=== PATIENT | male | born 1960 | race Caucasian/White ===

== ENCOUNTER 2017-08-26 18:31 | Emergency (ER) | END 2017-08-27 00:28 | disposition home or self-care (01) ==

== ENCOUNTER 2017-10-19 09:05 | Emergency (ER) | END 2017-10-19 10:30 | disposition home or self-care (01) ==

== ENCOUNTER 2018-10-02 18:17 | Emergency (ER) | payer OTHER ==
[~2018-10-02] VITALS: Wt 62.8 kg
[~2018-10-02 18:17] MED LIST: ACET500C5 PO; ALBU8.5H8 INH; AMOX1TAB67 PO; AZIT250T PO; CETI10CA PO; FAMO20TA; FENO48TA4 PO; FENO67CA PO; FLUT9.9S NASAL; GABA300C16 PO; GLIM4TAB55; GUAI-112 PO; GUAI473L22 PO; IBUP-1561 PO; METF100010 PO; METF500T3; NPH SQ; NPH,100V SQ; PARO-37; SS SC; [UNRECOGNIZED DRUG - CODE] MC
[2018-10-02] MEDS ORDERED: SOD CHLORIDE 0.9% 630 ML IV ONE (19:00)
[2018-10-02] MEDS ORDERED: BENA20TA4 PO ×2 (19:23→20:39)
[2018-10-02] MEDS ORDERED: SOD CHLORIDE 0.9% 1,000 ML IV STA (19:26)
[2018-10-02] MEDS ORDERED: INSULIN LISPRO 100 UNIT/ML VIAL SC ONE (19:30)
[2018-10-02] MEDS ORDERED: INSU100V3 IJ ×2 (19:35→20:39)
[2018-10-02] MEDS ORDERED: MTF1000T PO (20:39)
[2018-10-02] MEDS ORDERED: FENO48TA4 PO (20:39)
[2018-10-02] MEDS ORDERED: FAMO-96 PO (20:39)
--- NOTE | 2018-10-02 20:45 | ERD ---
ER Documentation Chief Complaint Chief Complaint DM PT HAS NOT TAKEN MEDICATIONS 3MONTHS, LOSS 10LBS LAST 3MONTHS HPI During the patient's encounter translation services were utilized Language: Georgian Source: In person 58-year-old gentleman who presents for refill of his medications. He has been out of his medications for at least 3 months. The patient notes polyuria polydipsia polyphagia. He also notes weight loss of 10 pounds over the last 3 months unintentional. He denies any fevers chills chest pain or shortness of br eath. Otherwise he feels that his baseline. The patient's glucose is noted to be critical high. ROS All systems reviewed and are negative except as per history of present illness. Medications Home Meds Active Scripts Metformin* (Glucophage*) 1,000 Mg Tablet, 1000 MG PO BID for 30 Days, TAB Prov:EUNICE SORENSEN MD 10/02/18 Famotidine* (Pepcid*) 20 Mg Tablet, 20 MG PO BID for 30 Days, TAB Prov:EUNICE SORENSEN MD 10/02/18 Benazepril Hcl* (Benazepril Hcl*) 20 Mg Tablet, 20 MG PO DAILY, #30 TAB Prov:EUNICE SORENSEN MD 10/02/18 Fenofibrate Nanocrystallized* (Fenofibrate*) 48 Mg Tablet, 67 MG PO DAILY for 30 Days, TAB Prov:EUNICE SORENSEN MD 10/02/18 Insulin Regular, Human (Humulin R) 100 Unit/1 Ml Vial, 20 UNIT IJ TIDM A for 30 Days, VIAL Prov:EUNICE SORENSEN MD 10/02/18 Discontinued Reported Medications Insulin Regular, Human (Humulin R) 100 Unit/1 Ml Vial, 20 UNIT IJ AC A, VIAL 10/02/18 Benazepril Hcl* (Benazepril Hcl*) 20 Mg Tablet, 20 MG PO DAILY, #30 TAB 10/02/18 Insulin Human Nph (Novolin-N) 100 Units/Ml Susp, 0 SQ BID 10/19/17 Fenofibrate Nanocrystallized* (Fenofibrate*) 48 Mg Tablet, 67 MG PO DAILY, TAB 10/19/17 Gabapentin* (Gabapentin*) 300 Mg Capsule, 300 MG PO PC DINNER, #60 CAP 10/19/17 Metformin Hcl* (Metformin Hcl*) 1,000 Mg Tablet, 1000 MG PO BID, #30 TAB 10/19/17 Famotidine (Heartburn Relief) 20 Mg Tablet 11/17/10 Metformin* (Glucophage* XR) 500 Mg Tab.sr.24h 11/17/10 Paroxetine Hcl* (Paroxetine*) 20 Mg Tablet 11/17/10 Glimepiride* (Amaryl*) 4 Mg Tablet 11/17/10 Discontinued Scripts Syringe & Needle,Insulin,1 Ml (EASY-TOUCH INSULIN SYRINGE) 1 Each Disp.syrin, 1 EACH MC, #60 Prov:FELICITA DICKEY-C 10/19/17 Gabapentin* (Gabapentin*) 300 Mg Capsule, 300 MG PO QHS, #60 CAP Prov:FELICITA DICKEY-C 10/19/17 Fenofibrate, Micronized (Fenofibrate) 67 Mg Capsule, 67 MG PO DAILY, #30 CAP Prov:FELICITA DICKEY-C 10/19/17 Insulin Human Regular (Novolin-R U-100) 100 Unit/Ml Soln, 20 UNITS SC AC MEALS, #30 EA Prov:FELICITA DICKEY-C 10/19/17 Insulin NPH Human Isophane (Humulin N) 100 Unit/1 Ml Vial, 20 UNIT SQ BID WITH MEALS, #1 VIAL Prov:NIKKO CARRERO NP 08/27/17 Acetaminophen* (Tylophen*) 500 Mg Capsule, 1 CAP PO Q6H PRN for PAIN AND OR ELEVATED TEMP, #20 CAP Prov:NIKKO CARRERO NP 08/27/17 Ibuprofen* (Motrin*) 400 Mg Tab, 400 MG PO Q6H PRN for PAIN AND OR ELEVATED TEMP, #30 TAB Prov:NIKKO CARRERO NP 08/27/17 Azithromycin* (Zithromax*) 250 Mg Tablet, 250 MG PO .MAJO DIRECTED, #6 TAB TAKE 500 MG (2 TABS) THE FIRST DAY THEN 250 MG (1 TAB) DAYS 2-5 Prov:NIKKO CARRERO NP 08/27/17 Cetirizine Hcl* (Zyrtec*) 10 Mg Capsule, 10 MG PO DAILY, #30 TAB.CHEW Prov:NIKKO CARRERO NP 08/27/17 Guaifenesin-Codeine Phosphate* (Guaifenesin* AC Cough Syrup) 473 Ml Liquid, 5 ML PO Q4H PRN for COUGH, #60 ML Prov:NIKKO CARRERO NP 08/27/17 Albuterol Sulfate* (Proair HFA*) 8.5 Gm Hfa.aer.ad, 2 PUFF INH Q4H PRN for WHEEZING AND SOB, #1 INHALER Prov:NIKKO CARRERO NP 08/27/17 Fluticasone Propionate (Flonase Allergy Relief) 9.9 Ml [place].susp, 1 SPRAY NASAL BID, #1 BOTTLE TO EACH NOSTRIL Prov:FELICITA DICKEY PA-C 08/28/15 Guaifenesin-Pseudoephedrine Hcl* (Mucinex* D ER) 600-60 Mg Tab.sr.12h, 1 TAB PO BID for 10 Days, TAB Prov:FELICITA DICKEY PA-C 08/28/15 Amoxicillin-Clavulanate K* (Augmentin*) 500 Mg Tab, 500 MG PO BID for 10 Days, TAB Prov:FELICITA DICKEY PA-C 08/28/15 Allergies Allergies: Coded Allergies: No Known Allergy (Verified , 10/02/18) PMhx/Soc History of Surgery: No Anesthesia Reaction: No Hx Neurological Disorder: No Hx Respiratory Disorders: No Hx Cardiac Disorders: No Hx Psychiatric Problems: No Hx Miscellaneous Medical Probl: Yes (DMII) Hx Alcohol Use: No Hx Substance Use: No Hx Tobacco Use: No Smoking Status: Never smoker FmHx Family History: diabetes Physical Exam Vitals Vital Signs Date Temp Pulse Resp B/P (MAP) Pulse Ox O2 O2 Flow FiO2 Time Delivery Rate 10/02/18 97.1 81 20 135/81 100 Room Air 18:46 (99) 10/02/18 97.1 82 20 131/71 100 18:20 (91) Physical Exam General: Well developed, well nourished, no acute distress Head: Normocephalic, atraumatic. Eyes: Pupils equally reactive, EOM intact ENT: Dry mucous membranes Neck: Supple, no lymphadenopathy Respiratory: Lungs clear bilaterally, no distress Cardiovascular: RRR, no murmurs, rubs, or gallops Abdominal: Soft, non-tender, non-distended, no peritoneal signs : Deferred MSK: No edema, no unilateral swelling, 5/5 strength Neurologic: Alert and oriented, moving all extremities, normal speech, no focal weakness, no cerebellar signs Skin: No rash Psych: Normal mood Result Diagram: 10/02/18 1845 10/02/18 1845 Results 24 hrs Laboratory Tests Test 10/02/18 18:32 10/02/18 18:35 10/02/18 18:45 10/02/18 20:36 Bedside Glucose > 595 mg/dL 421 mg/dL Blood Gas Blood venous Specimen Source Arterial Blood 10/02/2018 7:00:00 Date Drawn PM Arterial Blood VENOUS LINE Gas Puncture Site Bry Test N/A Venous Blood pH 7.332 Venous Blood pCO2 44.4 mmHG (Temp Corrected) Venous Blood pO2 46.0 mmHG (Temp Corrected) Venous Blood HCO3 23.0 mmol/L Venous Blood 80.5 mmHG Oxygen Saturation Venous Blood Base -2.9 mmol/L Excess Venous Blood 12.2 g/dl Total Hemoglobin Venous Blood 80.0 % Oxyhemoglobin Venous Blood 0.3 % Methemoglobin Carboxyhemoglobin 0.3 % Blood Gas 37.0 C Temperature Blood Gas ROOM AIR Modality FiO2 21.0 % Blood Gas MR Notified Whom Blood Gas 10/02/2018 7:09:14 Notified Time PM White Blood Count 5.3 10^3/ul Red Blood Count 4.19 10^6/ul Hemoglobin 13.0 g/dl Hematocrit 36.6 % Mean Corpuscular 87.4 fl Volume Mean Corpuscular 31.0 pg Hemoglobin Mean Corpuscular 35.5 g/dl Hemoglobin Concen t Red Cell 12.0 % Distribution Width Platelet Count 226 10^3/UL Mean Platelet 9.4 fl Volume Immature 0.200 % Granulocytes % Neutrophils % 66.0 % Lymphocytes % 27.5 % Monocytes % 5.1 % Eosinophils % 0.8 % Basophils % 0.4 % Nucleated Red 0.0 /100WBC Blood Cells % Immature 0.010 10^3/ul Granulocytes # Neutrophils # 3.5 10^3/ul Lymphocytes # 1.5 10^3/ul Monocytes # 0.3 10^3/ul Eosinophils # 0.0 10^3/ul Basophils # 0.0 10^3/ul Nucleated Red 0.0 10^3/ul Blood Cells # Urine Color COLORLESS Urine Clarity CLEAR Urine pH 6.0 Urine Specific 1.017 [place] Urine Ketones NEGATIVE mg/dL Urine Nitrite NEGATIVE mg/dL Urine Bilirubin NEGATIVE mg/dL Urine NEGATIVE mg/dL Urobilinogen Urine Leukocyte NEGATIVE Sarai/ul Esterase Urine Hemoglobin NEGATIVE mg/dL Urine Glucose 3+ mg/dL Urine Total NEGATIVE mg/dl Protein Sodium Level 131 mmol/L Potassium Level 4.4 mmol/L Chloride Level 95 mmol/L Carbon Dioxide 27 mmol/L Level Anion Gap 9 Blood Urea 9 mg/dl Nitrogen Creatinine 0.84 mg/dl Est Glomerular > 60 mL/min Filtrat Rate mL/min Glucose Level 624 mg/dl Calcium Level 8.7 mg/dl Phosphorus Level 4.3 mg/dl Magnesium Level 2.0 mg/dl Troponin I < 0.012 ng/ml Current Medications Medications Dose Sig/Clotilde Start Time Status Last (Trade) Ordered Route PRN Stop Time Admin Dose Reason Admin Sodium 630 ml @ ONCE ONCE 10/02/18 DC 10/02/18 Chloride 630 mls/hr IV 19:00 10/02/18 18:51 19:59 Insulin 10 unit ONCE ONCE 10/02/18 DC 10/02/18 Human SC 19:30 10/02/18 19:50 Lispro 19:34 (Humalog) Sodium 1,000 ml @ Q1H STAT 10/02/18 DC 10/02/18 Chloride 1,000 mls/hr IV 19:26 10/02/18 19:44 20:25 Procedures/MDM EKG, MONITORS, & DIAGNOSTIC IMAGING: EKG: I reviewed and interpreted a 12-lead EKG. Rhythm: Normal sinus rhythm ST Changes: No contiguous ST segment elevations T waves: No contiguous T wave inversions Impression: [No evidence of acute cardiac ischemia] Chest x-ray: No acute process LAB INTERPRETATION: * No evidence of infectious process * PH is normal. Chemistry shows slight hyponatremia but likely secondary to hyperglycemia. No evidence of anion gap acidosis, bicarb is 27. Normal creatinine function, negative troponin * Urine is without ketones MEDICAL DECISION MAKING: Patient presents with hyperglycemia secondary to medication noncompliance. The patient needs to be screened for diabetic ketoacidosis though clinically he is well-appearing ER COURSE: * Laboratory testing and diagnostic imaging show hyperglycemia without evidence of diabetic ketoacidosis. No evidence of endorgan dysfunction. * The patient was given IV fluids, subcutaneous Humalog. After period of time the patient's blood glucose is trending down into the 400 range. The patient does not meet diagnostic criteria for diabetic ketoacidosis and does not warrant hospitalization, insulin drip for further treatment. * endoscopy technician was able to receive the patient's most recent medications. The patient does not know the names or dosing of his medications. * The patient was strongly advised of compliance of his medications a primary care follow-up CONSULTATION: [None] DISPOSITION PLAN: The patient does not have an identifiable emergent medical condition that katrina ants inpatient hospitalization at this time. The patient is deemed safe for discharge with outpatient follow-up. We discussed follow up with the patient's primary care doctor within 24 to 48 hours as needed. We also discussed return to the emergency room for worsening symptoms or worsening condition. Outpatient referral: [None required] Discharge Medications: Humulin R 20 units 3 times daily with meals Fenofibrate 67 mg daily Benazepril 20 mg daily Famotidine 20 mg twice daily Metformin 1000 mg twice daily albumin Departure Diagnosis: Primary Impression: Hyperglycemia Additional Impression: Encounter for medication refill Condition: Stable Patient Instructions: Hyperglycemia (High Blood Sugar) Referrals: [facility] ted se christopher hecho un examen mdico de control que le indica que no est en madina condicin que requiera tratamiento urgente en el Departamento de Emergencia. Un estudio ms profundo y el tratamiento de lawrence condicin pueden esperar sin ningn riesgo hasta que usted sea atendida/o en el consultorio de lawrence mdico o madina clnica. Es responsabilidad suya arreglar madina samson para el seguimiento del ebryl. MANEJO DE CONDICIONES NO URGENTES EN EL FUTURO 1) Si usted tiene un mdico de atencin primaria: Usted debera llamar a lawrence mdico de atencin primaria antes de venir al departamento de emergencia. Despus de las horas de consultorio, lawrence doctor o lawrence asociado/a est disponible por telfono. El mdico o enfermero de christiane en el servicio telefnico puede asesorarle por chey medio para atender el problema, o beryl contrario se puede programar madina samson. 2) Si usted no tiene un mdico de atencin primaria: Llame al mdico o clnica de referencia que aparece abajo rad las horas de consultorio para hacer madina samson para que le vean. CLINICAS: [facility] [phone] [address] [facility] [phone] [facility] [phone] [address] [facility]. [place] [id number] [phone] [facility]. [place] [id number] [phone] [facility] [phone] [address] [facility]. [facility] () Usted se christopher hecho un examen mdico de control que le indica que no est en madina condicin que requiera tratamiento urgente en el Departamento de Emergencia. Un estudio ms profundo y el tratamiento de lawrence condicin pueden esperar sin ningn riesgo hasta que usted sea atendida/o en el consultorio de lawrence mdico o madina clnica. Es responsabilidad suya arreglar madina samson para el seguimiento del beryl. MANEJO DE CONDICIONES NO URGENTES EN EL FUTURO 1) Si usted tiene un mdico de atencin primaria: Usted debera llamar a lawrence mdico de atencin primaria antes de venir al de partamento de emergencia. Despus de las horas de consultorio, lawrence doctor o lawrence asociado/a est disponible por telfono. El mdico o enfermero de christiane en el servicio telefnico puede asesorarle por chey medio para atender el problema, o beryl contrario se puede programar madina samson. 2) Si usted no tiene un mdico de atencin primaria: Llame al mdico o condado institucions de referencia que aparece abajo rad las horas de consultorio para hacer madina samson para que le vean. SI USTED NO PUEDE PAGAR PARA NORRIS UN MEDICO puede ir a: [facility] [address] [place] [address] [facility] [address] [place] [address] [facility] [address] [place] [address] [facility] [address] [place], [place] [id number] Additional Instructions: Llame al doctor nombrado abajo (Referral Sources) MAANA y cathy madina SAMSON PARA DENTRO DE MADINA SEMANA. Dgale a la secretaria que nosotros le instruimos hacer esta samson.Avise o llame si lawrence condicin se empeora antes de la samson. EUNICE SORENSEN MD Oct 02, 2018 20:45
[2018-10-02 21:07] VITALS: BP 128/74; PULSE 77; RESP 20
== END 2018-10-02 21:07 | disposition home or self-care (01) ==
LOC: E/R 18:17
DX: E11.65 Type 2 diabetes mellitus with hyperglycemia (principal); Z79.4 Long term (current) use of insulin
CPT/HCPCS: 36415; 71045; 80048; 81003; 82803; 82962; 83735; 84100; 84484; 85025; 93005; 96372; 99285; J1815; J7030

== ENCOUNTER 2019-01-28 02:08 | Inpatient (IN) | payer OTHER ==
[2019-01-28] VITALS (61 sets, daily range): BP systolic 83–133; BP diastolic 54–86; PULSE 89–109; RESP 11–25; Ht 177.8 cm; Wt 72.1 kg
[~2019-01-28] VITALS: Ht 177.8 cm; Wt 72.1 kg
[~2019-01-28 02:08] MED LIST changes: -ACET500C5 PO; -ALBU8.5H8 INH; -AMOX1TAB67 PO; -AZIT250T PO; +BENA20TA4 PO; -CETI10CA PO; +FAMO-96 PO; -FAMO20TA; -FENO67CA PO; -FLUT9.9S NASAL; -GABA300C16 PO; -GLIM4TAB55; -GUAI-112 PO; -GUAI473L22 PO; -IBUP-1561 PO; +INSU100V3 IJ; -METF100010 PO; -METF500T3; +MTF1000T PO; -NPH SQ; -NPH,100V SQ; -PARO-37; -SS SC; -[UNRECOGNIZED DRUG - CODE] MC
[2019-01-28] MEDS: NITROGLYCERIN 50 MG/D5W (PMX) 250 ML IV SCH ×2 (03:25→07:31)
[2019-01-28] MEDS ORDERED: FENTAnyl 50 MCG/ML VIAL IV ONE (03:30)
[2019-01-28] MEDS ORDERED: HEPARIN 1000 UNITS/ML 10 ML INJ IV ONE (03:30)
[2019-01-28] MEDS ORDERED: ASPIRIN 81 MG TAB PO ONE (03:30)
[2019-01-28] MEDS ORDERED: SOD CHLORIDE 0.9% 1,000 ML IV ONE (03:30)
[2019-01-28] MEDS ORDERED: HEPARIN 1000 UNITS/ML 10 ML INJ ONE (03:50)
[2019-01-28] MEDS ORDERED: LIDOCAINE 1% (MDV) 20 ML INJ ONE (03:50)
[2019-01-28] MEDS ORDERED: IODIXANOL LOCM 100 ML BTL ONE (03:50)
[2019-01-28] MEDS ORDERED: MIDAZOLAM 1 MG/ML 2 ML INJ ONE (03:51)
[2019-01-28] MEDS ORDERED: FENTAnyl 50 MCG/ML VIAL ONE (03:51)
[2019-01-28] MEDS ORDERED: NITROGLYCERIN (IC) 100 MCG/ML INJ ONE (03:51)
[2019-01-28] MEDS ORDERED: VERAPAMIL 5 MG INJ ONE (03:51)
[2019-01-28] MEDS ORDERED: BIVALIRUDIN 250MG /NS 50 ML 50 ML IVPB ONE (04:28)
[2019-01-28] MEDS ORDERED: niCARdipine 25 MG INJ ONE (04:42)
[2019-01-28] MEDS ORDERED: TICAGRELOR 90 MG TABLET ONE (05:01)
[2019-01-28] MEDS ORDERED: BIVALIRUDIN 250MG /NS 50 ML 50 ML IVPB SCH (05:06)
[2019-01-28] MEDS ORDERED: SOD CHLORIDE 0.9% 1,000 ML IV SCH (05:06)
[2019-01-28] MEDS ORDERED: EPTIFIBATIDE 100 ML IV SCH (05:06)
--- NOTE | 2019-01-28 05:13 | SIPON ---
Date/Time of Note Date/Time of Note DATE: 01/28/19 TIME: 05:11 Operative Report Preoperative Diagnosis 1.STEMI Postoperative Diagnosis 1.Obstructive cad Operation/Procedure Performed 1.[facility] 2.PTCA/stent x 2 to LAD with JOSÉ MIGUEL Surgeon see signature line outreach assistant 1.Homero Anesthesia: moderate sedation Estimated blood loss: minimal Transfusion Required none Specimen none Grafts/Implants none Complications none TERI MURILLO January 28, 2019 05:12
[2019-01-28] MEDS ORDERED: AL HYDROX/MG HYDROX/SIMETH 30 ML CUP PO PRN (05:30)
[2019-01-28] MEDS ORDERED: ONDANSETRON 4 MG INJ IV PRN (05:30)
[2019-01-28] MEDS ORDERED: OXYCODONE/ACETAMINOPHEN (5/325) TAB PO PRN (05:30)
--- NOTE | 2019-01-28 05:32 | HP ---
Date/Time of Note Date/Time of Note DATE: 01/28/19 TIME: 05:32 Assessment/Plan VTE Prophylaxis SCD applied (from Nsg): Yes Pharmacological prophylaxis: NA/contraindicated Pharm contraindication: low risk/ambulating Lines/Catheters IV Catheter Type (from Nrsg): Saline Lock Assessment/Plan Hospital Course This is a 58-year-old male being admitted to the ICU floor for: #1 acute STEMI: ST elevations in leads V1, V2 and V3. Patient loaded with aspirin and heparin. Code STEMI was called in the emergency department. Dr. Carreno is on his way for emergent PCI in the Vehicle [employer]. We will keep the patient n.p.o. except meds. Likely transfer to ICU after cardiac catheterization. Further medication management will be forthcoming depending on the results of the cardiac cath. Will initiate high-dose statin. Initiation of beta-alex at the discretion of cardiology. #2 diabetes mellitus: We will hold metformin, insulin sliding scale we will check hemoglobin A1c #3 hyperlipidemia: Check lipid panel, will need to initiate high-dose statin #4 hypertension: Continue lisinopril, monitor blood pressures. #5 DVT GI prophylaxis: SCDs, Protonix Further treatment strategy will be implemented as per the clinical course Greater than 30 minutes of critical care time spent on the care management this patient. Result Diagram: 01/28/19 0259 01/28/19 0259 Results 24hrs Laboratory Tests Test 01/28/19 02:59 White Blood Count 9.2 # Red Blood Count 4.48 L Hemoglobin 13.8 L Hematocrit 38.5 L Mean Corpuscular Volume 85.9 Mean Corpuscular Hemoglobin 30.8 Mean Corpuscular Hemoglobin Concent 35.8 Red Cell Distribution Width 12.4 Platelet Count 204 Mean Platelet Volume 8.9 Immature Granulocytes % 0.400 Neutrophils % 69.8 Lymphocytes % 18.9 Monocytes % 10.4 Eosinophils % 0.3 Basophils % 0.2 Nucleated Red Blood Cells % 0.0 Immature Granulocytes # 0.040 H Neutrophils # 6.4 Lymphocytes # 1.7 Monocytes # 1.0 H Eosinophils # 0.0 Basophils # 0.0 Nucleated Red Blood Cells # 0.0 Sodium Level 140 Potassium Level 4.0 Chloride Level 101 Carbon Dioxide Level 30 Anion Gap 9 Blood Urea Nitrogen 12 Creatinine 0.71 Est Glomerular Filtrat Rate mL/min > 60 Glucose Level 268 H Calcium Level 9.0 Troponin I 27.300 *H HPI/ROS Admit Date/Time Admit Date/Time Hx of Present Illness Chief complaint: Chest pain x2 days This is a 58-year-old male with a past medical history of diabetes mellitus, hypertension, hyperlipidemia who presented to the emergency department with chest pain x2 days. Patient reports that his chest pain had been left-sided and radiating to the bilateral shoulders. His pain continued to get worse he came to the emergency department. Patient reports shortness of breath. But denies any nausea vomiting or diarrhea. In the emergency department patient was noted to be in acute distress. EKG did show normal sinus rhythm with ST elevations in leads V1, V2 and V3 worse with reciprocal changes consistent with STEMI. Code STEMI was called. Dr. Carreno has been notified by the emergency department and he is on his way to see the patient. He has received aspirin 325 mg, heparin bolus, in the emergency department. Currently awaiting troponin results. Allergies: NKDA Medications: See RICK POON Const: As per HPI Eyes : No pain discharge or redness or change in visual acuity ENT: No pain, sore throat, congestion, congestion, dysphagia or discharge Respiratory: As per HPI Cardiovascular: As per HPI GI : no change in appetite, abdominal pain, nausea, vomiting, diarrhea, constipation, or change in the color his stool Genitourinary: No dysuria, hematuria, flank pain , discharge or CVA tenderness Musculoskeletal: No joint pain, back pain, neck pain, restricted range of motion in neck or joints Skin: No rash, bruising or hives Neuro: No headache, dizziness, syncope, seizure, focal weakness Endocrine: No polyuria, polydipsia, temperature intolerance Psych: No hallucination, depression, anxiety or suicidal ideation PMH/Family/Social Past Medical History Hypertension, hyperlipidemia, diabetes mellitus Medications Current Medications Nitroglycerin/ Dextrose 250 ml @ 0 mls/hr TITRATE IV Last administered on 01/28/19at 03:25; Admin Dose 1.5 MLS/HR; Start 01/28/19 at 03:30 Aspirin (Halfprin) 81 mg DAILY PO ; Start 01/28/19 at 09:00 Ticagrelor (Brilinta) 90 mg BID PO ; Start 01/28/19 at 09:00 Eptifibatide 100 ml @ 3.936 mls/ hr Q24H IV ; Start 01/28/19 at 05:06; Stop 01/28/19 at 17:05 Bivalirudin 50 ml @ 22.96 mls/ hr Q2H11M IVPB ; Start 01/28/19 at 05:06; Stop 01/28/19 at 07:16 Acetaminophen (Tylenol Tab) 650 mg Q4H PRN PO PAIN; Start 01/28/19 at 05:30 Oxycodone/ Acetaminophen (Percocet (5/ 325)) 2 tab Q4H PRN PO PAIN; Start 01/28/19 at 05:30 Al Hydrox/Mg Hydrox/Simethicone (Mag-Al Plus) 30 ml Q4H PRN PO GASTROINTESTINAL UPSET; Start 01/28/19 at 05:30 Ondansetron HCl (Zofran Inj) 4 mg Q4H PRN IV NAUSEA AND/OR VOMITING; Start 01/28/19 at 05:30 Sodium Chloride 1,000 ml @ 75 mls/hr [id number] IV ; Start 01/28/19 at 05:06; Stop 01/28/19 at 18:25 Coded Allergies: No Known Allergy (Verified , 10/02/18) Past Surgical History Past Surgical Hx: no surgical history Family History Significant Family History: no pertinent family hx Social History History of on and off again heavy alcohol use, last time 3 months ago Alcohol Use: other Smoking Status: Never smoker Exam/Review of Systems Vital Signs Vitals Vital Signs Date Temp Pulse Resp B/P (MAP) Pulse Ox O2 O2 Flow FiO2 Time Delivery Rate 01/28/19 Nasal 2 03:39 Cannula 01/28/19 85 16 110/71 99 03:30 (84) 01/28/19 97.8 02:24 Exam Exam General: Patient is currently lying in bed he appears to be in moderate distress from chest pain HEENT: Atraumatic, normocephalic. The pupils are equal, round and reactive. Extraocular motor are intact Neck: Supple with full range of motion. No rigidity or meningismus Chest: Nontender to palpation Lungs: Clear to auscultation bilaterally no crackles rales or wheezing Heart: Normal S1-S2, Regular rhythm and rate. No overt murmurs appreciated on auscultation Abdomen: Soft , nontender, nondistended , bowel sounds are present. No guarding no rebound tenderness , No masses or organomegaly. No costovertebral temporal angle mass Extremities: Normal to inspection, no edema no cyanosis Neurologic: Normal mental status, speech normal, cranial nerves II through XII are intact, motor and sensory are intact, Additional Comments EKG: Normal sinus rhythm with ST elevations in V1 V2 and V3 concerning for acute STEMI PROCEDURE: XR Chest. CLINICAL INDICATION: Chest pain TECHNIQUE: AP portable chest was obtained COMPARISON: None. FINDINGS: Cardiomediastinal silhouette is normal. Pulmonary vasculature is normal. Lungs and costophrenic angles are clear. Bones soft tissues are unremarkable. IMPRESSION: No evidence of acute cardiopulmonary disease. RPTAT:AAJJ Physician Mercy Date Time Electronically viewed and signed by Physician Mercy on 01/28/2019 06:02 BM/ CC: KAZ BRODY MD [id number] CECILLE RICHARD January 28, 2019 05:32
[2019-01-28] MEDS ORDERED: NITROGLYCERIN (SL) 0.4 MG TAB SL PRN (06:00)
[2019-01-28] MEDS: PANTOPRAZOLE (EC) 40 MG TAB PO SCH (06:00)
[2019-01-28] MEDS ORDERED: ACETAMINOPHEN 650MG/20.3ML CUP PO PRN (06:00)
[2019-01-28] MEDS: morphine 2 MG INJ IV PRN ×5 (06:01→23:39)
[2019-01-28] MEDS ORDERED: ASPIRIN 81 MG TAB ONE (07:00)
[2019-01-28] MEDS ORDERED: HEPARIN 5,000 UNIT/1 ML VIAL ONE (07:00)
[2019-01-28] MEDS ORDERED: NITROGLYCERIN 50 MG/D5W 250 ML BTL ONE (07:00)
[2019-01-28] MEDS: NITROGLYCERIN (SL) 0.4 MG TAB SL PRN ×4 (07:18→20:48)
[2019-01-28] MEDS ORDERED: NITROGLYCERIN 50 MG/D5W (PMX) 250 ML IV SCH (07:30)
--- NOTE | 2019-01-28 08:54 | CONS ---
DATE OF ADMISSION: 01/28/2019 DATE OF CONSULTATION: 01/28/2019 TYPE OF CONSULTATION: Cardiology. REASON FOR CONSULTATION: ST elevation CA. REQUESTING PHYSICIAN: Dr. Brody from the emergency department. HISTORY OF PRESENT ILLNESS: Mr. Sanchez is a 58-year-old male with a history of hypertensio n, dyslipidemia, diabetes mellitus who presented with 2 days of substernal chest pain. Upon arrival in the emergency department, temperature was 97.8, blood pressure 119/87, pulse 80, respiratory rate 18, satting 98%. The patient's labs revealed a sodium 140, potassium 4.0, creatinine 0.7, BUN 12. W nato blood cell count 9.2, hemoglobin 13.8, platelet count of 204. The patient subsequently underwen t a 12-lead EKG revealing sinus rhythm, rate 86, normal axis, normal intervals, with anteroseptal bor derline Q's anterior, anteroseptal ST elevation 1 to 2 mm. The patient in the emergency department w as treated with aspirin 325 mg and heparin bolus. Started on nitro drip, was brought to the cardiac oil field laborer in order to undergo emergent cardiac catheterization. PAST MEDICAL HISTORY: As above in HPI. MEDICATIONS PRIOR TO ADMIT. 1. Benazepril 10 mg daily. 2. Pepcid 20 mg p.o. b.i.d. 3. TriCor mg daily. 4. Insulin. 5. Metformin 1000 mg b.i.d. ALLERGIES: NO KNOWN DRUG ALLERGIES. SOCIAL HISTORY: No tobacco, EtOH or illicit drug use. FAMILY HISTORY: No sudden cardiac or early CAD. REVIEW OF SYSTEMS: As above in the HPI. CONSTITUTIONAL: No fevers, chills. PULMONARY: No current shortness of breath. CARDIOVASCULAR: Chest pain. GASTROINTESTINAL: No vomiting. GENITOURINARY: No hematuria. MUSCULOSKELETAL: Degenerative joint disease. PSYCHIATRIC: The patient has depression. PHYSICAL EXAMINATION: VITAL SIGNS: Temperature 97.8, blood pressure 110/71, pulse 85, respiratory rate 16, satting 99%. GENERAL: The patient is alert, awake, complaining of severe substernal chest pain. NECK: JVP approximately 8 to 9 cm of water. CHEST: Fair air movement throughout. HEART: Regular rate and rhythm. Normal S1, S2, 1/6 systolic murmur. Nondisplaced PMI. ABDOMEN: Positive bowel sounds, soft. EXTREMITIES: No significant pitting edema, 1+ pulses bilateral posterior tibial. LABORATORIES: As above in HPI with a white blood cell count 9.2, hemoglobin 13.8, platelet count of 204. Sodium 140, potassium 4.0, creatinine 0.7, 27.3, calcium 9, glucose 268. IMAGING STUDIES: No imaging studies for my review at this time. ECG: As above in HPI. No further electrocardiograms for my review at this time. IMPRESSION: 1. ST elevation CA, anterior. 2. Chest pain secondary to ST elevation CA. 3. Abnormal echocardiogram secondary to ST elevation CA. 4. Hypertension. 5. Dyslipidemia. 6. Diabetes mellitus. RECOMMENDATIONS: At this time, the patient was taken emergently to cardiac catheterization lab in [facility] to undergo a left heart catheterization with probable PT and stent placed for acute CA with furt her recommendations to be made after completion of the study. Dictated By: TERI ROMANO/NTS Conf#: [id number] DID#: [id number] CC: KAZ BRODY MD; CECILLE RICHARD MD;*End*
[2019-01-28] MEDS: ASPIRIN (EC) 81 MG TAB PO SCH (09:00)
--- NOTE | 2019-01-28 09:37 | RADRPT ---
Vent Rate: 89 bpm RR Interval: 0 msec RI Interval: 162 msec QRS Duration: 84 msec QT Interval: 336 msec QTC Interval: 408 msec P-R-T [place]: 69 - 96 - 70 degrees Normal sinus rhythm Rightward axis Anteroseptal infarct , possibly acute Abnormal ECG Electronically Signed By: Allen Anders
--- NOTE | 2019-01-28 10:04 | CARRPT ---
DATE OF PROCEDURE: 01/28/2019 TYPE OF PROCEDURE: 1. Left heart catheterization. 2. Coronary angiography. 3. Percutaneous transluminal coronary angioplasty with placement of drug-eluting stents x2 to left a nterior descending, a 3.0 x 28 mm to proximal and a 3.0 x 18 mm to left anterior descending. 4. Moderate conscious sedation. 5. Measure of left ventricular end- diastolic pressure. ATTENDING PHYSICIAN: Teri Carreno M.D. REFERRING PHYSICIAN: Dr. Richardson from the emergency department. TYPE OF ANESTHESIA: Conscious and local. BRIEF HISTORY: The patient is a 58-year-old male with history of hypertension, dyslipidemia, diabete s mellitus with dyspnea complaints of chest pain ongoing for approximately 2 days and found to have a nterior ST elevations. The patient subsequently has been brought to cardiac labour market economist in order to und ergo emergent left heart catheterization with PTCA and stent placement for treatment of ST elevation myocardial infarction. PROCEDURE: After informed consent was obtained, the patient was brought to the [facility] cardiac Catheterization Lab where his right radial wrist prepped and draped in sterile fashio n, 2% lidocaine infiltrated into right radial area in order to achieve adequate anesthesia. Using th e modified Seldinger technique, the radial artery was cannulated and a 6-[place] arterial sheath was p laced. A 6-[place] JR4 catheter was used to cannulate the right coronary arterial ostium. With contr ast injection, multiple views of the left coronary system were obtained. JL4 guidewire and a 6-Frenc h Q3 guide was used to cannulate the left main coronary ostium. With contrast injection, most recent coronary arterial system were obtained. At this time 100% occlusion of the patient's mid distal LAD , we moved directly to interventional procedure. A Medical Sales Associate 50 guidewire was initially used to cross th e lesion. This proved somewhat difficult and crossed into the diagonal. At this time, we had a seco nd wire and were used to cross down into the LAD, we then used a 2.5 x 12 mm balloon inflated to 12 t o 14 atmospheres x2 to restore HARDEEP 3 flow and at this time, the most distal portion lesion was stent ed with a 3.0 x 18 mm drug-eluting stent deployed at 14 atmospheres, post-dilated with the stent deli very system at 16 atmospheres. Followup angiogram was obtained with excellent results with the stent , HARDEEP 3 flow throughout the vessel, no current signs of complication including perforation, dissecti on, but still some distal sluggish flow. Once again after the stent, so at this time, we used Eliqui s and nicardipine 800 mcg until flow once again improved. Subsequently, at this time, there is a pro ximal area of the admit stenting and we used a 3.0 x 28 mm drug-eluting stent deployed at 16 atmosphe res, post-dilated with the stent delivery system is about 18 atmospheres. Stent balloon was removed. At this time, followup angiogram was obtained revealing excellent deployment of both stents, HARDEEP 3 flow throughout the vessel, no signs of complication for section. Subsequently, at this time, enter al guide was removed, guidewires and a 6-[place] pigtail was passed down aorta used to measure LVEDP a nd pullback across the aortic valve to assess for significant gradient. No LV gram was undertaken du e to elevated LVEDP. Subsequently, the catheters were removed. At this time, sheath was removed. T R Band was applied. There were no new complications. FINDINGS: Coronary angiography: Right coronary proximally is a 3.5 mm vessel. Shortly its takeoff has a very focal 50% stenosis and just before bifurcation there is another somewhat hazy appearing 50% to 60% st enosis in the dominant vessel and therefore gives off a small PDA sub 2 mm vessel with moderate diffu se disease, probably up to a 30% to 40% and a posterolateral branch approximately 2 mm with no signif icant focal stenoses. The left main proximally is a 4 mm vessel, no significant focal stenoses. Cir cumflex proximally is a 3 mm vessel and its proximal portion has a 60% stenosis. The remainder of lawrence rgery after quickly bifurcates into a more proximal branching obtuse marginal 2.5 mm, no significant stenoses in a longer branching obtuse marginal 3 mm vessel with a mid body 40% stenosis. The circ co ntinuation AV groove is free from focal stenoses. The LAD proximally is a 3 mm vessel. Shortly afte r takeoff has a long tubular stenosis up to approximately 70% to 80% and then in the mid distal porti on is 100% occluded. There is a diagonal bifurcates right midway through this, which is a 2 mm vesse l and has mild disease up to 20% to 30% more proximal to this and there is a more proximal branching diagonal which a subcentimeter vessel bifurcates midway through the more proximal placed stent, has o stial disease, but continues to have HARDEEP 3 flow throughout the stents 2 mm vessel. Measurement of left ventricular diastolic pressure of 31 to 33. No significant aortic stenosis by gr antione. TOTAL FLUOROSCOPY TIME: 16.8 minutes. TOTAL CONTRAST: 300 mL. IMPRESSION: 1. 100% occlusion of the patient's mid left anterior descending as culprit to ST elevation myocardia l infarction status post successful percutaneous transluminal coronary angioplasty and stent placemen ts x1 to mid left anterior descending and x1 to proximal left anterior descending, drug-eluting stent s, 3.0 x 18 mm, 3.0 x 20 mm, respectively. 2. Intermediate stenosis in the patient's mid to distal right coronary artery and in the patient's p roximal circ of somewhat unclear significance. RECOMMENDATIONS: In light of procedure findings at this time, we would: 1. Maintain the patient on Brilinta 90 mg 1 tab p.o. b.i.d. for at least 1 year. 2. Aspirin 81 mg 1 tab p.o. daily indefinitely. 3. Maximize medical management. 4. Aggressive risk factor reduction nerves, the patient was admitted to ICU for post-catheterization intervention any fevers, any symptoms with ongoing treatment and follow. Dictated By: TERI ROMANO/ANDREY Conf#: [id number] DID#: [id number] CC: TERI CARRENO MD; CECILLE RICHARD MD;*End*
[2019-01-28] MEDS: TICAGRELOR 90 MG TABLET PO SCH ×2 (10:06→20:38)
[2019-01-28] MEDS: ONDANSETRON 4 MG INJ IV PRN ×2 (10:15→18:05)
--- NOTE | 2019-01-28 10:52 | PN ---
Date/Time of Note Date/Time of Note DATE: 01/28/19 TIME: 10:52 Assessment/Plan VTE Prophylaxis Risk score (from Nsg)>0 risk: 4 SCD applied (from Nsg): Yes Pharmacological prophylaxis: other Lines/Catheters IV Catheter Type (from Nrsg): Peripheral IV Urinary Cath still in place: No Assessment/Plan Hospital Course Subjective: Patient still states he is having some chest discomfort, however this is relieved by morphine, symptoms seems more due to anxiety than to be cardiac in origin, will try some Ativan. Objective: General: A&O x3, answering questions appropriately, anxious, ill looking HEENT: NC/ AT. PERRL. EOM intact Neck: supple CVS: S1, S2, RRR. no murmurs. no pain on chest wall palpation Lungs: CTA b/l. no wheezing or rhonchi Abd: soft, nontender, +BS Ext: moving all extremities skin: no rashes Assessment and plan: 58-year-old male who had presented to the emergency room with chest pain for 2 days and was managed as a "ST elevation myocardial infarction in the ER. 1. Acute ST elevation myocardial infarction status post emergent left heart catheterization with PCI x2 to left anterior descending -Cardiology recommends Brilinta 90 mg twice daily for at least 1 year, aspirin indefinitely and maximizing medical management -Patient is to be maintained in ICU at this time 2. Diabetes mellitus with suboptimal control -Carb controlled diet -Begin Lantus and pre-meal NovoLog and titrate for optimal control -Continue sliding scale as well -Obtain hemoglobin A1c 3. Dyslipidemia: Check levels, continue high-dose statin 4. Hypertension: -Patient currently with good control, however is on nitroglycerin drip for continued chest pain, continued monitoring. 5. Anxiety: -Begin PRN Ativan Disposition: -Continue ICU monitoring and care -Continue to follow cardiology recommendations, appreciate input Further interventions per clinical course Critical care time greater than 40 minutes Result Diagram: 01/28/19 0259 01/28/19 0259 Results 24hrs Laboratory Tests Test 01/28/19 02:59 01/28/19 08:55 White Blood Count 9.2 # Red Blood Count 4.48 L Hemoglobin 13.8 L Hematocrit 38.5 L Mean Corpuscular Volume 85.9 Mean Corpuscular Hemoglobin 30.8 Mean Corpuscular Hemoglobin Concent 35.8 Red Cell Distribution Width 12.4 Platelet Count 204 Mean Platelet Volume 8.9 Immature Granulocytes % 0.400 Neutrophils % 69.8 Lymphocytes % 18.9 Monocytes % 10.4 Eosinophils % 0.3 Basophils % 0.2 Nucleated Red Blood Cells % 0.0 Immature Granulocytes # 0.040 H Neutrophils # 6.4 Lymphocytes # 1.7 Monocytes # 1.0 H Eosinophils # 0.0 Basophils # 0.0 Nucleated Red Blood Cells # 0.0 Sodium Level 140 Potassium Level 4.0 Chloride Level 101 Carbon Dioxide Level 30 Anion Gap 9 Blood Urea Nitrogen 12 Creatinine 0.71 Est Glomerular Filtrat Rate mL/min > 60 Glucose Level 268 H Calcium Level 9.0 Troponin I 27.300 *H 57.300 *H Creatine Kinase 794 H Creatine Kinase Index 5.2 Creatinine Kinase MB (Mass) 41.30 H Exam/Review of Systems Exam Vitals Vital Signs Date Temp Pulse Resp B/P (MAP) Pulse Ox O2 O2 Flow FiO2 Time Delivery Rate 01/28/19 99 14 111/74 100 10:30 (86) 01/28/19 Nasal 4.0 10:00 Cannula 01/28/19 97.8 02:24 Intake and Output 01/27/19 01/27/19 01/28/19 1515:00 23:00 07:00 IntakeIntake Total 78.936 ml BalanceBalance 78.936 ml Results Results 24hrs Laboratory Tests Test 01/28/19 02:59 01/28/19 08:55 White Blood Count 9.2 # Red Blood Count 4.48 L Hemoglobin 13.8 L Hematocrit 38.5 L Mean Corpuscular Volume 85.9 Mean Corpuscular Hemoglobin 30.8 Mean Corpuscular Hemoglobin Concent 35.8 Red Cell Distribution Width 12.4 Platelet Count 204 Mean Platelet Volume 8.9 Immature Granulocytes % 0.400 Neutrophils % 69.8 Lymphocytes % 18.9 Monocytes % 10.4 Eosinophils % 0.3 Basophils % 0.2 Nucleated Red Blood Cells % 0.0 Immature Granulocytes # 0.040 H Neutrophils # 6.4 Lymphocytes # 1.7 Monocytes # 1.0 H Eosinophils # 0.0 Basophils # 0.0 Nucleated Red Blood Cells # 0.0 Sodium Level 140 Potassium Level 4.0 Chloride Level 101 Carbon Dioxide Level 30 Anion Gap 9 Blood Urea Nitrogen 12 Creatinine 0.71 Est Glomerular Filtrat Rate mL/min > 60 Glucose Level 268 H Calcium Level 9.0 Troponin I 27.300 *H 57.300 *H Creatine Kinase 794 H Creatine Kinase Index 5.2 Creatinine Kinase MB (Mass) 41.30 H Medications Medication Current Medications Aspirin (Halfprin) 81 mg DAILY PO Last administered on 01/28/19at 09:00; Admin Dose 81 MG; Start 01/28/19 at 09:00 Ticagrelor (Brilinta) 90 mg BID PO Last administered on 01/28/19at 10:06; Admin Dose 90 MG; Start 01/28/19 at 09:00 Eptifibatide 100 ml @ 3.936 mls/ hr Q24H IV Last administered on 01/28/19 06:04; Admin Dose 3.936 MLS/HR; Start 01/28/19 at 05:06; Stop 01/28/19 at 17:05 Acetaminophen (Tylenol Tab) 650 mg Q4H PRN PO PAIN; Start 01/28/19 at 05:30 Oxycodone/ Acetaminophen (Percocet (5/ 325)) 2 tab Q4H PRN PO PAIN; Start 01/28/19 at 05:30 Al Hydrox/Mg Hydrox/Simethicone (Mag-Al Plus) 30 ml Q4H PRN PO GASTROINTESTINAL UPSET; Start 01/28/19 at 05:30 Sodium Chloride 1,000 ml @ 75 mls/hr [id number] IV Last administered on 01/28/19at 06:04; Admin Dose 75 MLS/HR; Start 01/28/19 at 05:06; Stop 01/28/19 at 18:25 Ondansetron HCl (Zofran Inj) 4 mg Q6H PRN IV NAUSEA AND/OR VOMITING Last administered on 01/28/19at 10:15; Admin Dose 4 MG; Start 01/28/19 at 06:00 Acetaminophen (Tylenol Liquid) 650 mg Q6H PRN PO PAIN LEVEL 1-3 OR FEVER; Start 01/28/19 at 06:00 Pantoprazole (Protonix Tab) 40 mg DAILY@06 PO ; Start 01/28/19 at 06:00 Nitroglycerin (Nitroglycerin (Sl Tab) 0.4 Mg) 1 tab Q5M PRN SL ANGINA Last administered on 01/28/19at 07:18; Admin Dose 1 TAB; Start 01/28/19 at 07:30 Nitroglycerin/ Dextrose 250 ml @ 0 mls/hr TITRATE IV ; Start 01/28/19 at 07:30 Benazepril HCl (Lotensin) 20 mg DAILY PO ; Start 01/28/19 at 10:30 Famotidine (Pepcid) 20 mg BID PO ; Start 01/28/19 at 21:00 Atorvastatin Calcium (Lipitor) 80 mg HS PO ; Start 01/28/19 at 21:00 Morphine Sulfate (morphine) 2 mg Q2H PRN IV PAIN LEVEL 7-10; Start 01/28/19 at 10:30 BENJAMIN JONES January 28, 2019 10:52
[2019-01-28] MEDS: BENAZEPRIL 20 MG TAB PO SCH (10:57)
[2019-01-28] MEDS ORDERED: LORAZEPAM 2 MG INJ IV PRN (11:30)
[2019-01-28] MEDS ORDERED: GLUCAGON 1 MG INJ IM PRN (12:00)
[2019-01-28] MEDS ORDERED: GLUCOSE GEL 15 GRAM TUBE BUCCAL PRN (12:00)
[2019-01-28] MEDS ORDERED: DEXTROSE 50% 50 ML SYRINGE IV PRN ×2 (12:00)
[2019-01-28] MEDS ORDERED: GLUCOSE GEL 15 GRAM TUBE PO PRN ×2 (12:00)
[2019-01-28] MEDS: ACETAMINOPHEN 325 MG TAB PO PRN (12:02)
[2019-01-28] MEDS: INSULIN ASPART [NOVOLOG] 3 ML PEN SC SCH ×5 (13:11→20:39)
[2019-01-28] MEDS: FAMOTIDINE 20 MG TAB PO SCH (20:37)
[2019-01-28] MEDS: ATORVASTATIN 80 MG TAB PO SCH (20:37)
[2019-01-28] MEDS: INSULIN GLARGINE [LANTus] (100 UNITS/ML) SYG SC SCH (20:39)
--- NOTE | 2019-01-28 21:33 | RADRPT ---
Echocardiogram Report Patient Name: YEMI MAGDALENOPatient ID: [id number] : 1960 (58y 8m)Study Date: 01/28/2019 7:23:18 AM Gender: MAccession #: [id number] Tech: ParishRukhsana Benítez [facility] Location: [facility] Ref.Physician: CECILLE RICHARD Height(Cm): BSA: Weight(Kg): Quality: Technically Difficult StudyOrder Physician: CECILLE RICHARD Account #: Report amended on 2019-01-29 at 11:04 AM: Added/Modified: Left Ventricle: [MODIFIED] LV Systolic Dysfunction: Moderate Systolic Dysfunction [MODIFIED] Ejection fraction is visually estimated at : 35-40 % Conclusions: [MODIFIED TEXT] Left Ventricular Findings: Normal left ventricular cavity size. Mild concentric left ventricular hypertrophy. Moderate left ventricular systolic dysfunction. Ejection fraction is visually estimated at 35-40 %. Tissue Doppler/Mitral Doppler indices are consistent with impaired relaxation (Stage I diastolic dysfunction). These segments of the LV are hypokinetic apical anterior segment, apex and apical septum. Electronically Signed by: Efrem Carreno 2019-01-29 11:04:07 PDT End of Addendum Procedures: Echocardiographic Report: Transthoracic echocardiogram with complete 2D, M-Mode, and doppler examination. Indications: STEMI. Measurements: 2D/M Mode Doppler Measurement Value Normal Range Measurement Value Normal Range LVIDd 2D 4.0 [ 4.2 - 5.8 ] cm AV Peak Gonzalo 1.2 [ 100.0 - 170.0 ] cm/sec LVIDs 2D 2.1 [ 2.5 - 4.0 ] cm AV Peak PG 6.0 [ 2.0 - 9.0 ] mmHg LVPWd 2D 1.2 [ 0.6 - 1.0 ] cm LVOT Peak Gonzalo 1.0 [ 70.0 - 110.0 ] cm/sec IVSd 2D 1.1 [ 0.6 - 1.0 ] cm LVOT Peak PG 4.0 [ 2.0 - 6.0 ] mmHg AoR Diam 2D 2.6 [ 2.6 - 3.4 ] cm MV E Peak Gonzalo 0.5 [ 60.0 - 130.0 ] cm/sec EDV 2D 68.8 [ 62.0 - 150.0 ] ml MV A Peak Gonzalo 0.7 [ 100.0 - 120.0 ] cm/sec ESV 2D 15.1 [ 21.0 - 61.0 ] ml MV E/A 0.7 [ 0.8 - 1.5 ] ratio EF 2D 78.1 [ 52.0 - 72.0 ] percent MV Decel Time 134 [ 104 - 258 ] msec LA Dimen 2D 3.3 [ 3.0 - 4.0 ] cm MV E/A 0.7 [ 0.8 - 1.5 ] ratio TR Peak Gonzalo 2.1 [ 100.0 - 280.0 ] cm/sec TR Peak PG 17.0 mmHg RVSP 20.0 [ 10.0 - 36.0 ] mmHg RA Pressure 3.0 mmHg Findings: Left Ventricle: Normal left ventricular cavity size. Mild concentric left ventricular hypertrophy. Moderate left ventricular systolic dysfunction. Ejection fraction is visually estimated at 35-40 %. Tissue Doppler/Mitral Doppler indices are consistent with impaired relaxation (Stage I diastolic dysfunction). These segments of the LV are hypokinetic apical anterior segment, apex and apical septum. Right Ventricle: Normal right ventricular size. Normal right ventricular systolic function. Left Atrium: The left atrium is normal in size. Right Atrium: The right atrium is normal in size. Mitral Valve: Normal appearance and function of the mitral valve with trace physiologic regurgitation. Aortic Valve: Normal appearance of the aortic valve. No significant aortic stenosis or insufficiency. Tricuspid Valve: Normal appearance of the tricuspid valve. The estimated Peak RVSP is 20 mmHg. There is trace tricuspid regurgitation. Pulmonic Valve: Pulmonic valve not well visualized. Pericardium: Normal pericardium with no significant pericardial effusion. Aorta: Normal aortic root. IVC: Normal size and normal respiratory collapse consistent with normal right atrial pressure. Conclusions: Normal left ventricular cavity size. Mild concentric left ventricular hypertrophy. Moderate left ventricular systolic dysfunction. Ejection fraction is visually estimated at 35-40 %. Tissue Doppler/Mitral Doppler indices are consistent with impaired relaxation (Stage I diastolic dysfunction). These segments of the LV are hypokinetic apical anterior segment, apex and apical septum. Normal appearance and function of the mitral valve with trace physiologic regurgitation. Normal appearance of the tricuspid valve. The estimated Peak RVSP is 20 mmHg. There is trace tricuspid regurgitation. Electronically Signed By: Efrem Carreno 2019-01-29 11:04:05 PDT
[2019-01-29] VITALS (44 sets, daily range): BP systolic 81–116; BP diastolic 53–77; PULSE 78–104; RESP 9–20
[2019-01-29] MEDS: ACCU-CHEK XX SCH (02:00)
--- NOTE | 2019-01-29 02:13 | ERD ---
ER Documentation Chief Complaint Chief Complaint CP X 2 DAYS, WORSE TODAY HPI The patient is a 58-year-old male, presenting to the ER because of intermittent left-sided chest pain for 2 days, worse tonight, worse with movement, denies similar symptoms previously, denies chest pain with vomiting/radiation/exertion/diaphoresis, denies dyspnea, abdominal pain, vomiting, dysuria, diarrhea. He does not smoke nor drink Past medical history: Diabetes mellitus, dyslipidemia Past surgical history: None ROS All systems reviewed and are negative except as per history of present illness. Medications Home Meds Active Scripts Metformin* (Glucophage*) 1,000 Mg Tablet, 1000 MG PO BID for 30 Days, TAB Prov:EUNICE SORENSEN MD 10/02/18 Famotidine* (Pepcid*) 20 Mg Tablet, 20 MG PO BID for 30 Days, TAB Prov:EUNICE SORENSEN MD 10/02/18 Benazepril Hcl* (Benazepril Hcl*) 20 Mg Tablet, 20 MG PO DAILY, #30 TAB Prov:EUNICE SORENSEN MD 10/02/18 Fenofibrate Nanocrystallized* (Fenofibrate*) 48 Mg Tablet, 67 MG PO DAILY for 30 Days, TAB Prov:EUNICE SORENSEN MD 10/02/18 Insulin Regular, Human (Humulin R) 100 Unit/1 Ml Vial, 20 UNIT IJ TIDM A for 30 Days, VIAL Prov:EUNICE SORENSEN MD 10/02/18 Allergies Allergies: Coded Allergies: No Known Allergy (Verified , 10/02/18) PMhx/Soc History of Surgery: No Anesthesia Reaction: No Hx Neurological Disorder: Yes (Seizure) Hx Respiratory Disorders: No Hx Cardiac Disorders: Yes (AMI) Hx Psychiatric Problems: No Hx Miscellaneous Medical Probl: No Hx Alcohol Use: Yes Hx Substance Use: No Hx Tobacco Use: No Smoking Status: Never smoker Physical Exam Vitals Vital Signs Date Temp Pulse Resp B/P (MAP) Pulse Ox O2 O2 Flow FiO2 Time Delivery Rate 01/28/19 Nasal 2 03:39 Cannula 01/28/19 85 16 110/71 99 Nasal 2.0 03:30 (84) Cannula 01/28/19 97.8 80 18 119/87 99 02:24 (98) Physical Exam Const: No acute distress. Mildly diaphoretic Head: Atraumatic. Eyes: Normal Conjunctiva. ENT: Normal External Ears, Nose and Mouth. Neck: Full range of motion. No meningismus. Resp: Clear to auscultation bilaterally. Cardio: Regular rate and rhythm. Abd: Soft, non distended, normal bowel sounds, non tender. Skin: No petechiae or rashes. Back: No midline or flank tenderness. Ext: No cyanosis, or edema. Neur: Awake and alert. No focal deficit Psych: Normal Mood and Affect. Result Diagram: 01/28/19 0259 01/28/19 0259 Results 24 hrs Laboratory Tests Test 01/28/19 02:59 White Blood Count 9.2 10^3/ul Red Blood Count 4.48 10^6/ul Hemoglobin 13.8 g/dl Hematocrit 38.5 % Mean Corpuscular Volume 85.9 fl Mean Corpuscular Hemoglobin 30.8 pg Mean Corpuscular Hemoglobin Concent 35.8 g/dl Red Cell Distribution Width 12.4 % Platelet Count 204 10^3/UL Mean Platelet Volume 8.9 fl Immature Granulocytes % 0.400 % Neutrophils % 69.8 % Lymphocytes % 18.9 % Monocytes % 10.4 % Eosinophils % 0.3 % Basophils % 0.2 % Nucleated Red Blood Cells % 0.0 /100WBC Immature Granulocytes # 0.040 10^3/ul Neutrophils # 6.4 10^3/ul Lymphocytes # 1.7 10^3/ul Monocytes # 1.0 10^3/ul Eosinophils # 0.0 10^3/ul Basophils # 0.0 10^3/ul Nucleated Red Blood Cells # 0.0 10^3/ul Sodium Level 140 mmol/L Potassium Level 4.0 mmol/L Chloride Level 101 mmol/L Carbon Dioxide Level 30 mmol/L Anion Gap 9 Blood Urea Nitrogen 12 mg/dl Creatinine 0.71 mg/dl Est Glomerular Filtrat Rate mL/min > 60 mL/min Glucose Level 268 mg/dl Calcium Level 9.0 mg/dl Troponin I 27.300 ng/ml Current Medications Medications Dose Sig/Clotilde Start Time Status Last (Trade) Ordered Route PRN Stop Time Admin Dose Reason Admin Aspirin 324 mg ONCE ONCE 01/28/19 DC 01/28/19 (Aspirin) PO 03:30 03:15 01/28/19 03:31 Sodium 1,000 ml @ Q1H ONCE 01/28/19 DC 01/28/19 Chloride 1,000 mls/hr IV 03:30 03:20 01/28/19 04:29 Heparin 4,000 unit ONCE ONCE 01/28/19 DC 01/28/19 Sodium IV 03:30 03:23 (Porcine) 01/28/19 03:31 (Heparin (1000 Units/ml)) 250 ml @ 0 TITRATE IV 01/28/19 DC 01/28/19 Nitroglycerin mls/hr 03:30 07:31 / Dextrose 01/28/19 07:44 Fentanyl 50 mcg ONCE ONCE 01/28/19 DC 01/28/19 (Sublimaze) IV 03:30 03:26 01/28/19 03:31 Heparin 10,000 unit STK-MED 01/28/19 DC Sodium ONCE .ROUTE 03:50 (Porcine) 01/28/19 03:51 (Heparin (1000 Units/ml)) Lidocaine 20 ml STK-MED 01/28/19 DC (Xylocaine ONCE .ROUTE 03:50 1% (Mdv) 20 01/28/19 03:51 ml) Iodixanol 100 ml STK-MED 01/28/19 DC (Visipaque ONCE .ROUTE 03:50 Locm) 01/28/19 03:51 Heparin 500 ml @ ud STK-MED 01/28/19 DC Sodium/ ONCE .ROUTE 03:50 Sodium 01/28/19 03:51 Chloride Fentanyl 100 mcg STK-MED 01/28/19 DC (Sublimaze) ONCE .ROUTE 03:51 01/28/19 03:52 Midazolam 2 mg STK-MED 01/28/19 DC HCl ONCE .ROUTE 03:51 (Versed) 01/28/19 03:52 Verapamil 5 mg STK-MED 01/28/19 DC HCl ONCE .ROUTE 03:51 (Verapamil) 01/28/19 03:52 1,000 mcg STK-MED 01/28/19 DC Nitroglycerin ONCE .ROUTE 03:51 01/28/19 03:52 (Nitroglyceri n (Intracoronar y)) Procedures/[place] [id number] Radiology Main Line: [phone] DIAGNOSTIC IMAGING REPORT Patient: YEMI MAGDALENO : 1960 Age: 58 Sex: M MR #: [id number] DOS: 01/28/19 0246 Ordering MD: KAZ BRODY MD [facility]: [facility]: XR Chest. CLINICAL INDICATION: Chest pain TECHNIQUE: AP portable chest was obtained COMPARISON: None. FINDINGS: Cardiomediastinal silhouette is normal. Pulmonary vasculature is normal. Lungs and costophrenic angles are clear. Bones soft tissues are unremarkable. IMPRESSION: No evidence of acute cardiopulmonary disease. RPTAT:AAJJ Physician [facility] Date Time Electronically viewed and signed by [place] Physician on 01/28/2019 06:02 BM/ CC: KAZ BRODY MD [id number] EKG: At 2:18 AM while in the ER waiting room read by emergency physician Rate/Rhythm: Normal Sinus Rhythm 78 beats/min QRS, ST, T-waves: No ST elevation, no T inversion, low voltage, septal Q waves Impression: Abnormal EKG EKG: At 3:10 AM when enter room 5 in ER read by emergen cy physician Rate/Rhythm: Normal Sinus Rhythm 86 beats/min QRS, ST, T-waves: Acute anterior ST elevation with reciprocal change, no PVC Impression: Abnormal EKG, acute anterior wall DE Consultation: After I reviewed the second EKG when he entered the room, I activated code STEMI immediately. We paged the on-call medical physics researcher Dr. Carreno multiple times beginning at 3:12 AM, I spoke with him at 3:36 AM when he returned the call. He was made aware of the patient has acute anterior wall DE, the treatment, the patient condition. He is coming to the hospital immediately MEDICAL MAKING DECISION: The patient is a 58-year-old male, presenting with acute anterior wall STEMI, was treated with aspirin 324 mg p.o. chew and swallow, heparin 4000 units IV, nitroglycerin drip, 1 L normal saline due to hypotension. He was treated with fentanyl 50 mcg IV for acute pain and hy potension with good response The differential diagnoses considered include but are not limited to acute coronary syndrome, acute myocardial infarction, pericarditis, pulmonary embolism, aortic dissection, pneumonia, pleural effusion, pneumothorax, GERD, chest wall pain. Critical Care: Time: 35 minutes excluding all billable procedures. Treatments/Evaluations: Close monitoring and treatment of unstable vital signs, cardiorespiratory, and neurologic status, while maintaining tight balance of fluid, respiratory, and cardiac interventions. He lft the ER to the Dementia Program Director prior to having any results of the labs Departure Diagnosis: Primary Impression: STEMI (ST elevation myocardial infarction) Condition: Critical Comments I discussed the findings with the patient. I discussed the patient with Dr Liriano , who was made aware of the lab, the treatment, the patient condition. The patient is admitted to ICU Disclaimer: Inadvertent spelling and grammatical errors are likely due to EHR/ dictation software use and do not reflect on the overall quality of patient care. Also, please note that the electronic time recorded on this note does not necessarily reflect the actual time of the patient encounter. KAZ BROYD MD January 29, 2019 02:13
[2019-01-29] MEDS: morphine 2 MG INJ IV PRN ×2 (04:01→20:58)
[2019-01-29] MEDS: ACETAMINOPHEN 325 MG TAB PO PRN (04:08)
[2019-01-29] MEDS: PANTOPRAZOLE (EC) 40 MG TAB PO SCH (05:31)
[2019-01-29] MEDS: BENAZEPRIL 20 MG TAB PO SCH (08:19)
[2019-01-29] MEDS: ASPIRIN (EC) 81 MG TAB PO SCH (08:19)
[2019-01-29] MEDS: FAMOTIDINE 20 MG TAB PO SCH (08:20)
[2019-01-29] MEDS: INSULIN ASPART [NOVOLOG] 3 ML PEN SC SCH ×7 (08:20→20:21)
[2019-01-29] MEDS: TICAGRELOR 90 MG TABLET PO SCH ×2 (08:21→20:20)
--- NOTE | 2019-01-29 10:57 | CONS ---
Assessment/Plan Assessment/Plan Hospital Course (Demo Recall) IMPRESSION: 1. ST elevation MA, anterior-improved chest pain and sig downtrending of cardiac enzymes. EF 35-40% immediately post stenting 2. Chest pain secondary to ST elevation MA. 3. Abnormal echocardiogram secondary to ST elevation MA.- persistent anterior ST elevations of ECG ? localized pericarditis. Enzymes downtrended and chest pain improved 4. Hypertension. 5. Dyslipidemia. 6. Diabetes mellitus. Recc: -ok for tele -serial ecg's -continue to trend enzymes -Continue statin -Continue asa/brilinta Consultation Date/Type/Reason Admit Date/Time January 28, 2019 at 03:52 Initial Consult Date 01/28/19 Type of Consult Cardiology Reason for Consultation STEMI Requesting Provider: CECILLE RICHARD Date/Time of Note DATE: 01/29/19 TIME: 10:49 Exam/Review of Systems Vital Signs Vitals Vital Signs Date Temp Pulse Resp B/P (MAP) Pulse Ox O2 O2 Flow FiO2 Time Delivery Rate 01/29/19 87 12 97/59 (72) 100 06:30 01/29/19 Nasal 2.0 06:00 Cannula 01/29/19 27 05:20 01/29/19 99.0 05:00 Intake and Output 01/28/19 01/28/19 01/29/19 1515:00 23:00 07:00 IntakeIntake Total 992.988 ml 638.936 ml 524 ml OutputOutput Total 400 ml 800 ml 700 ml BalanceBalance 592.988 ml -161.064 ml -176 ml Exam Exam Review of Systems: CONSTITUTIONAL: No fevers, chills. PULMONARY: No sob CARDIOVASCULAR:improved chest pain GASTROINTESTINAL: No nausea/vomiting. GENITOURINARY: No hematuria/dysuria. MUSCULOSKELETAL: No myagias/arthalgias. PSYCHIATRIC: The patient denies depression. NEUROLOGIC: No weakness Constitutional: alert Head: normocephalic ENMT: mucosa pink and moist Neck: supple, jvd (9 cm water) Respiratory: clear to auscultation Cardiovascular: regular rate and rhythm Gastrointestinal: soft, non-tender Musculoskeletal: muscle tone (normal) Extremities: edema (none) Neurological: other ( focal defiicts) Labs Result Diagram: 01/29/1914 01/29/19513 Results 24hrs Laboratory Tests Test 01/28/19 13:08 01/28/19 14:25 01/28/19 17:25 01/28/19 20:37 Bedside Glucose 245 H 163 157 Creatine Kinase 665 H Creatine Kinase 4.7 Index Creatinine Kinase MB 31.10 H (Mass) Troponin I 32.600 *H Test 01/29/19 03:16 01/29/19 05:14 01/29/19 08:18 Bedside Glucose 154 179 White Blood Count 7.9 Red Blood Count 3.58 #L Hemoglobin 11.1 L Hematocrit 31.7 L Mean Corpuscular 88.5 Volume Mean Corpuscular 31.0 Hemoglobin Mean Corpuscular 35.0 Hemoglobin Concent Red Cell 12.2 Distribution Width Platelet Count 163 # Mean Platelet Volume 9.0 Immature 0.300 Granulocytes % Neutrophils % 76.9 Lymphocytes % 12.5 L Monocytes % 10.1 Eosinophils % 0.1 Basophils % 0.1 Nucleated Red Blood 0.0 Cells % Immature 0.020 Granulocytes # Neutrophils # 6.1 Lymphocytes # 1.0 Monocytes # 0.8 Eosinophils # 0.0 Basophils # 0.0 Nucleated Red Blood 0.0 Cells # Sodium Level 138 Potassium Level 3.7 Chloride Level 104 Carbon Dioxide Level 27 Anion Gap 7 Blood Urea Nitrogen 12 Creatinine 0.67 Est Glomerular > 60 Filtrat Rate mL/min Glucose Level 129 # Hemoglobin A1c 7.9 H Calcium Level 8.1 L Total Bilirubin 1.0 Direct Bilirubin 0.00 Indirect Bilirubin 1.0 Aspartate Amino 70 H Transf (AST/SGOT) Alanine 46 Aminotransferase (AL T/SGPT) Alkaline Phosphatase 60 Creatine Kinase 430 #H Creatine Kinase 2.5 Index Creatinine Kinase MB 10.90 H (Mass) Troponin I 18.600 *H Total Protein 5.6 L Albumin 3.2 L Triglycerides Level 141 Cholesterol Level 123 LDL Cholesterol, 62 Calculated HDL Cholesterol 33 Cholesterol/HDL 3.7 Ratio Medications Medications Current Medications Aspirin (Halfprin) 81 mg DAILY PO Last administered on 01/29/19at 08:19; Admin Dose 81 MG; Start 01/28/19 at 09:00 Ticagrelor (Brilinta) 90 mg BID PO Last administered on 01/29/19at 08:21; Admin Dose 90 MG; Start 01/28/19 at 09:00 Acetaminophen (Tylenol Tab) 650 mg Q4H PRN PO PAIN Last administered on 01/29/19 04:08; Admin Dose 650 MG; Start 01/28/19 at 05:30 Oxycodone/ Acetaminophen (Percocet (5/ 325)) 2 tab Q4H PRN PO PAIN; Start 01/28/19 at 05:30 Al Hydrox/Mg Hydrox/Simethicone (Mag-Al Plus) 30 ml Q4H PRN PO GASTROINTESTINAL UPSET; Start 01/28/19 at 05:30 Ondansetron HCl (Zofran Inj) 4 mg Q6H PRN IV NAUSEA AND/OR VOMITING Last administered on 01/28/19 18:05; Admin Dose 4 MG; Start 01/28/19 at 06:00 Acetaminophen (Tylenol Liquid) 650 mg Q6H PRN PO PAIN LEVEL 1-3 OR FEVER; Start 01/28/19 at 06:00 Pantoprazole (Protonix Tab) 40 mg DAILY@06 PO Last administered on 01/29/19 05:31; Admin Dose 40 MG; Start 01/28/19 at 06:00 Nitroglycerin (Nitroglycerin (Sl Tab) 0.4 Mg) 1 tab Q5M PRN SL ANGINA Last admi nistered on 01/28/19 20:48; Admin Dose 1 TAB; Start 01/28/19 at 07:30 Nitroglycerin/ Dextrose 250 ml @ 0 mls/hr TITRATE IV Last administered on 01/28/19 23:17; Admin Dose 1.5 MLS/HR; Start 01/28/19 at 07:30 Benazepril HCl (Lotensin) 20 mg DAILY PO Last administered on 01/29/19 08:19; Admin Dose 20 MG; Start 01/28/19 at 10:30 Famotidine (Pepcid) 20 mg BID PO Last administered on 01/29/19 08:20; Admin Dose 20 MG; Start 01/28/19 at 21:00 Atorvastatin Calcium (Lipitor) 80 mg HS PO Last administered on 01/28/19 20:37; Admin Dose 80 MG; Start 01/28/19 at 21:00 Morphine Sulfate (morphine) 2 mg Q2H PRN IV PAIN LEVEL 7-10 Last administered on 01/29/19 04:01; Admin Dose 2 MG; Start 01/28/19 at 10:30 Diagnostic Test (Pha) (Accu-Chek) 1 ea 02 XX ; Start 01/29/19 at 02:00 Insulin Glargine (Lantus) 14 units DAILY@2000 SC Last administered on 01/28/19at 20:39; Admin Dose 14 UNITS; Start 01/28/19 at 20:00 Insulin Aspart (Novolog Insulin Pen) 5 unit WITH MEALS SC Last administered on 01/29/19at 08:20; Admin Dose 5 UNIT; Start 01/28/19 at 11:30 Insulin Aspart (Novolog Insulin Pen) NOVOLOG *MILD* ALGORITHM WITH MEALS BEDTIME SC Last administered on 01/29/19at 08:21; Admin Dose 1 UNIT; Start 01/28/19 at 11:30 Lorazepam (Ativan) 0.5 mg Q6H PRN IV ANXIETY; Start 01/28/19 at 11:30 Miscellaneous Information 1 ea NOTE XX ; Start 01/28/19 at 12:00 Glucose (Glutose) 15 gm Q15M PRN PO DECREASED GLUCOSE; Start 01/28/19 at 12:00 Glucose (Glutose) 22.5 gm Q15M PRN PO DECREASED GLUCOSE; Start 01/28/19 at 12:00 Dextrose (D50w Syringe) 25 ml Q15M PRN IV DECREASED GLUCOSE; Start 01/28/19 at 12:00 Dextrose (D50w Syringe) 50 ml Q15M PRN IV DECREASED GLUCOSE; Start 01/28/19 at 12:00 Glucagon (Glucagen) 1 mg Q15M PRN IM DECREASED GLUCOSE; Start 01/28/19 at 12:00 Glucose (Glutose) 15 gm Q15M PRN BUCCAL DECREASED GLUCOSE; Start 01/28/19 at 12:00 TERI MURILLO January 29, 2019 10:57
[2019-01-29] MEDS: ATORVASTATIN 80 MG TAB PO SCH (20:19)
[2019-01-29] MEDS: INSULIN GLARGINE [LANTus] (100 UNITS/ML) SYG SC SCH (20:20)
[2019-01-29] MEDS: NITROGLYCERIN (SL) 0.4 MG TAB SL PRN (20:58)
[2019-01-30] VITALS (14 sets, daily range): BP systolic 89–118; BP diastolic 56–73; PULSE 68–97; RESP 12–18
--- NOTE | 2019-01-30 00:57 | EN ---
Date/Time of Note Date/Time of Note DATE: 01/29/19 Event Note Medicine Medicine Event Note Subjective: sleeping comfortably, still lethargic, arousable Objective: General: lethargic, arousable HEENT: NC/ AT. PERRL. EOM intact Neck: supple CVS: S1, S2, RRR. no murmurs. no pain on chest wall palpation Lungs: CTA b/l. no wheezing or rhonchi Abd: soft, nontender, +BS Ext: moving all extremities skin: no rashes Assessment and plan: 58-year-old male who had presented to the emergency room with chest pain for 2 days and was managed as a "ST elevation myocardial infarction in the ER. 1. Acute ST elevation myocardial infarction status post emergent left heart catheterization with PCI x2 to left anterior descending -Cardiology recommends Brilinta 90 mg twice daily for at least 1 year, aspirin indefinitely and maximizing medical management -transfer to tele if cleared by Cardio 2. Diabetes mellitus with suboptimal control -Carb controlled diet -Continue Lantus and pre-meal NovoLog and titrate for optimal control -Continue sliding scale as well -Hemoglobin A1c 7.9 3. Hx of Dyslipidemia: continue statin per cardio 4. Hypertension: -Patient currently with good control, however is on nitroglycerin drip for continued chest pain, continued monitoring. wean 5. Anxiety: -Continue PRN Ativan Disposition: -Continue ICU monitoring and care and transfer to tele when cleared by cardio -PT eval Further interventions per clinical course Critical care time greater than 40 minutes Vital Signs Date Temp Pulse Resp B/P (MAP) Pulse Ox O2 O2 Flow FiO2 Time Delivery Rate 01/29/19 87 12 97/59 (72) 100 06:30 01/29/19 Nasal 2.0 06:00 Cannula 01/29/19 27 05:20 01/29/19 99.0 05:00 Intake and Output 01/28/19 01/28/19 01/29/19 1515:00 23:00 07:00 IntakeIntake Total 992.988 ml 638.936 ml 524 ml OutputOutput Total 400 ml 800 ml 700 ml BalanceBalance 592.988 ml -161.064 ml -176 ml Labs Result Diagram: 01/29/19 0514 01/29/19 0514 Results 24hrs Laboratory Tests Test 01/28/19 13:08 01/28/19 14:25 01/28/19 17:25 01/28/19 20:37 Bedside Glucose 245 H 163 157 Creatine Kinase 665 H Creatine Kinase 4.7 Index Creatinine Kinase MB 31.10 H (Mass) Troponin I 32.600 *H Test 01/29/19 03:16 01/29/19 05:14 01/29/19 08:18 Bedside Glucose 154 179 White Blood Count 7.9 Red Blood Count 3.58 #L Hemoglobin 11.1 L Hematocrit 31.7 L Mean Corpuscular 88.5 Volume Mean Corpuscular 31.0 Hemoglobin Mean Corpuscular 35.0 Hemoglobin Concent Red Cell 12.2 Distribution Width Platelet Count 163 # Mean Platelet Volume 9.0 Immature 0.300 Granulocytes % Neutrophils % 76.9 Lymphocytes % 12.5 L Monocytes % 10.1 Eosinophils % 0.1 Basophils % 0.1 Nucleated Red Blood 0.0 Cells % Immature 0.020 Granulocytes # Neutrophils # 6.1 Lymphocytes # 1.0 Monocytes # 0.8 Eosinophils # 0.0 Basophils # 0.0 Nucleated Red Blood 0.0 Cells # Sodium Level 138 Potassium Level 3.7 Chloride Level 104 Carbon Dioxide Level 27 Anion Gap 7 Blood Urea Nitrogen 12 Creatinine 0.67 Est Glomerular > 60 Filtrat Rate mL/min Glucose Level 129 # Hemoglobin A1c 7.9 H Calcium Level 8.1 L Total Bilirubin 1.0 Direct Bilirubin 0.00 Indirect Bilirubin 1.0 Aspartate Amino 70 H Transf (AST/SGOT) Alanine 46 Aminotransferase (AL T/SGPT) Alkaline Phosphatase 60 Creatine Kinase 430 #H Creatine Kinase 2.5 Index Creatinine Kinase MB 10.90 H (Mass) Troponin I 18.600 *H Total Protein 5.6 L Albumin 3.2 L Triglycerides Level 141 Cholesterol Level 123 LDL Cholesterol, 62 Calculated HDL Cholesterol 33 Cholesterol/HDL 3.7 Ratio Medications Medications Current Medications Aspirin (Halfprin) 81 mg DAILY PO Last administered on 01/29/19at 08:19; Admin Dose 81 MG; Start 01/28/19 at 09:00 Ticagrelor (Brilinta) 90 mg BID PO Last administered on 01/29/19at 08:21; Admin Dose 90 MG; Start 01/28/19 at 09:00 Acetaminophen (Tylenol Tab) 650 mg Q4H PRN PO PAIN Last administered on 9at 04:08; Admin Dose 650 MG; Start 01/28/19 at 05:30 Oxycodone/ Acetaminophen (Percocet (5/ 325)) 2 tab Q4H PRN PO PAIN; Start 01/28/19 at 05:30 Al Hydrox/Mg Hydrox/Simethicone (Mag-Al Plus) 30 ml Q4H PRN PO GASTROINTESTINAL UPSET; Start 01/28/19 at 05:30 Ondansetron HCl (Zofran Inj) 4 mg Q6H PRN IV NAUSEA AND/OR VOMITING Last administered on 01/28/19at 18:05; Admin Dose 4 MG; Start 01/28/19 at 06:00 Acetaminophen (Tylenol Liquid) 650 mg Q6H PRN PO PAIN LEVEL 1-3 OR FEVER; Start 01/28/19 at 06:00 Pantoprazole (Protonix Tab) 40 mg DAILY@06 PO Last administered on 01/29/19at 05:31; Admin Dose 40 MG; Start 01/28/19 at 06:00 Nitroglycerin (Nitroglycerin (Sl Tab) 0.4 Mg) 1 tab Q5M PRN SL ANGINA Last administered on 01/28/19at 20:48; Admin Dose 1 TAB; Start 01/28/19 at 07:30 Nitroglycerin/ Dextrose 250 ml @ 0 mls/hr TITRATE IV Last administered on 01/28/19at 23:17; Admin Dose 1.5 MLS/HR; Start 01/28/19 at 07:30 Benazepril HCl (Lotensin) 20 mg DAILY PO Last administered on 01/29/19at 08:19; Admin Dose 20 MG; Start 01/28/19 at 10:30 Famotidine (Pepcid) 20 mg BID PO Last administered on 01/29/19 08:20; Admin Dose 20 MG; Start 01/28/19 at 21:00 Atorvastatin Calcium (Lipitor) 80 mg HS PO Last administered on 01/28/19at 20:37; Admin Dose 80 MG; Start 01/28/19 at 21:00 Morphine Sulfate (morphine) 2 mg Q2H PRN IV PAIN LEVEL 7-10 Last administered on 01/29/19at 04:01; Admin Dose 2 MG; Start 01/28/19 at 10:30 Diagnostic Test (Pha) (Accu-Chek) 1 ea 02 XX ; Start 01/29/19 at 02:00 Insulin Glargine (Lantus) 14 units DAILY@2000 SC Last administered on 01/28/19at 20:39; Admin Dose 14 UNITS; Start 01/28/19 at 20:00 Insulin Aspart (Novolog Insulin Pen) 5 unit WITH MEALS SC Last administered on 01/29/19at 08:20; Admin Dose 5 UNIT; Start 01/28/19 at 11:30 Insulin Aspart (Novolog Insulin Pen) NOVOLOG *MILD* ALGORITHM WITH MEALS BEDTIME SC Last administered on 01/29/19at 08:21; Admin Dose 1 UNIT; Start 01/28/19 at 11:30 Lorazepam (Ativan) 0.5 mg Q6H PRN IV ANXIETY; Start 01/28/19 at 11:30 Miscellaneous Information 1 ea NOTE XX ; Start 01/28/19 at 12:00 Glucose (Glutose) 15 gm Q15M PRN PO DECREASED GLUCOSE; Start 01/28/19 at 12:00 Glucose (Glutose) 22.5 gm Q15M PRN PO DECREASED GLUCOSE; Start 01/28/19 at 12:00 Dextrose (D50w Syringe) 25 ml Q15M PRN IV DECREASED GLUCOSE; Start 01/28/19 at 12:00 Dextrose (D50w Syringe) 50 ml Q15M PRN IV DECREASED GLUCOSE; Start 01/28/19 at 12:00 Glucagon (Glucagen) 1 mg Q15M PRN IM DECREASED GLUCOSE; Start 01/28/19 at 12:00 Glucose (Glutose) 15 gm Q15M PRN BUCCAL DECREASED GLUCOSE; Start 01/28/19 at 12:00 BENJAMIN JONES Jan 30, 2019 00:57
[2019-01-30] MEDS: ACCU-CHEK XX SCH (01:27)
[2019-01-30] MEDS: PANTOPRAZOLE (EC) 40 MG TAB PO SCH (05:05)
[2019-01-30] MEDS: INSULIN ASPART [NOVOLOG] 3 ML PEN SC SCH ×7 (08:00→20:28)
[2019-01-30] MEDS: ASPIRIN (EC) 81 MG TAB PO SCH (08:16)
[2019-01-30] MEDS: BENAZEPRIL 20 MG TAB PO SCH (08:17)
[2019-01-30] MEDS: TICAGRELOR 90 MG TABLET PO SCH ×2 (08:21→20:29)
[2019-01-30] MEDS ORDERED: POTASSIUM CHLORIDE (SR) 20 MEQ TAB PO STA (09:34)
--- NOTE | 2019-01-30 09:42 | PN ---
Date/Time of Note Date/Time of Note DATE: 01/30/19 TIME: 09:40 Assessment/Plan VTE Prophylaxis Risk score (from [facility])>0 risk: 2 SCD applied (from [facility]): Yes Pharmacological prophylaxis: heparin Lines/Catheters IV Catheter Type (from [facility]): Peripheral IV Urinary Cath still in place: No Assessment/Plan Problems: (1) STEMI (ST elevation myocardial infarction) Onset Date: ~ 01/28/2019 Status: Acute Comment: Post procedure and doing well, see below Qualifiers: Involved coronary artery: LAD coronary artery Qualified Codes: I21.02 - ST elevation (STEMI) myocardial infarction involving left anterior descending coronary artery (2) S/P coronary angioplasty Onset Date: ~ 01/28/2019 Status: Acute Comment: Successful angioplasty performed. Aspirin and Brilinta and SHANIA inhibitor. Beta-blockade as per cardiology (3) Status post insertion of drug-eluting stent into left anterior descending (LAD) artery for coronary artery disease Onset Date: ~ 01/28/2019 Status: Acute Comment: Note he has 2 drug-eluting stents in the LAD, stable at this time on aspirin and Brilinta (4) Diabetes mellitus type 2 in nonobese Status: Chronic Comment: Good glycemic control at this time in a controlled setting with controlled diet (5) Essential hypertension Status: Chronic Comment: Excellent control at this time Result Diagram: 01/30/19 0417 01/30/19 0417 Results 24hrs Laboratory Tests Test 01/29/19 11:55 01/29/19 17:39 01/29/19 17:40 01/29/19 20:18 Bedside Glucose 173 106 104 159 Test 01/30/19 04:17 01/30/19 07:42 White Blood Count 8.1 Red Blood Count 3.98 L Hemoglobin 12.1 L Hematocrit 34.8 L Mean Corpuscular 87.4 Volume Mean Corpuscular 30.4 Hemoglobin Mean Corpuscular 34.8 Hemoglobin Concent Red Cell 11.9 Distribution Width Platelet Count 202 # Mean Platelet Volume 9.2 Immature 0.400 Granulocytes % Neutrophils % 73.6 Lymphocytes % 17.3 Monocytes % 8.0 Eosinophils % 0.6 Basophils % 0.1 Nucleated Red Blood 0.0 Cells % Immature 0.030 Granulocytes # Neutrophils # 6.0 Lymphocytes # 1.4 Monocytes # 0.7 Eosinophils # 0.1 Basophils # 0.0 Nucleated Red Blood 0.0 Cells # Sodium Level 138 Potassium Level 3.6 Chloride Level 105 Carbon Dioxide Level 27 Anion Gap 6 Blood Urea Nitrogen 15 Creatinine 0.78 Est Glomerular > 60 Filtrat Rate mL/min Glucose Level 104 Calcium Level 8.5 Phosphorus Level 3.0 Magnesium Level 2.2 Bedside Glucose 88 Subjective 24 Hr Interval Summary Free Text/Dictation The patient reports he is doing well and is ambulating without issue Constitutional: no complaints Respiratory: no complaints (No shortness of breath) Cardiovascular: no complaints (No chest pain orthopnea no PND no palpitations) Gastrointestinal: no complaints Genitourinary: no complaints Endocrine: no complaints Exam/Review of Systems Exam Vitals Vital Signs Date Temp Pulse Resp B/P (MAP) Pulse Ox O2 O2 Flow FiO2 Time Delivery Rate 01/30/19 97 08:02 01/30/19 98.9 18 100/62 96 Room Air 07:14 (75) 01/30/19 2.0 04:50 01/30/19 27 01:51 Intake and Output 01/29/19 01/29/19 01/30/19 1515:00 23:00 07:00 IntakeIntake Total 365.375 ml 350 ml 100 ml OutputOutput Total 1600 ml 0 ml 700 ml BalanceBalance -1234.625 ml 350 ml -600 ml Exam Charming gentleman conversant and in bed Constitutional: alert, oriented Respiratory: clear to auscultation, normal air movement Cardiovascular: regular rate and rhythm, nl pulses Gastrointestinal: soft, nl liver, spleen, non-tender Results Results 24hrs Laboratory Tests Test 01/29/19 11:55 01/29/19 17:39 01/29/19 17:40 01/29/19 20:18 Bedside Glucose 173 106 104 159 Test 01/30/19 04:17 01/30/19 07:42 White Blood Count 8.1 Red Blood Count 3.98 L Hemoglobin 12.1 L Hematocrit 34.8 L Mean Corpuscular 87.4 Volume Mean Corpuscular 30.4 Hemoglobin Mean Corpuscular 34.8 Hemoglobin Concent Red Cell 11.9 Distribution Width Platelet Count 202 # Mean Platelet Volume 9.2 Immature 0.400 Granulocytes % Neutrophils % 73.6 Lymphocytes % 17.3 Monocytes % 8.0 Eosinophils % 0.6 Basophils % 0.1 Nucleated Red Blood 0.0 Cells % Immature 0.030 Granulocytes # Neutrophils # 6.0 Lymphocytes # 1.4 Monocytes # 0.7 Eosinophils # 0.1 Basophils # 0.0 Nucleated Red Blood 0.0 Cells # Sodium Level 138 Potassium Level 3.6 Chloride Level 105 Carbon Dioxide Level 27 Anion Gap 6 Blood Urea Nitrogen 15 Creatinine 0.78 Est Glomerular > 60 Filtrat Rate mL/min Glucose Level 104 Calcium Level 8.5 Phosphorus Level 3.0 Magnesium Level 2.2 Bedside Glucose 88 Medications Medication Current Medications Aspirin (Halfprin) 81 mg DAILY PO Last administered on 01/30/19 08:16; Admin Dose 81 MG; Start 01/28/19 at 09:00 Ticagrelor (Brilinta) 90 mg BID PO Last administered on 01/30/19 08:21; Admin Dose 90 MG; Start 01/28/19 at 09:00 Acetaminophen (Tylenol Tab) 650 mg Q4H PRN PO PAIN Last administered on 01/29/19 04:08; Admin Dose 650 MG; Start 01/28/19 at 05:30 Oxycodone/ Acetaminophen (Percocet (5/ 325)) 2 tab Q4H PRN PO PAIN; Start 01/28/19 at 05:30 Al Hydrox/Mg Hydrox/Simethicone (Mag-Al Plus) 30 ml Q4H PRN PO GASTROINTESTINAL UPSET; Start 01/28/19 at 05:30 Ondansetron HCl (Zofran Inj) 4 mg Q6H PRN IV NAUSEA AND/OR VOMITING Last administered on 01/28/19at 18:05; Admin Dose 4 MG; Start 01/28/19 at 06:00 Acetaminophen (Tylenol Liquid) 650 mg Q6H PRN PO PAIN LEVEL 1-3 OR FEVER; Start 01/28/19 at 06:00 Pantoprazole (Protonix Tab) 40 mg DAILY@06 PO Last administered on 01/30/19 05:05; Admin Dose 40 MG; Start 01/28/19 at 06:00 Nitroglycerin (Nitroglycerin (Sl Tab) 0.4 Mg) 1 tab Q5M PRN SL ANGINA Last administered on 01/29/19 20:58; Admin Dose 1 TAB; Start 01/28/19 at 07:30 Benazepril HCl (Lotensin) 20 mg DAILY PO Last administered on 01/30/19 08:17; Admin Dose 20 MG; Start 01/28/19 at 10:30 Atorvastatin Calcium (Lipitor) 80 mg HS PO Last administered on 01/29/19at 20:19; Admin Dose 80 MG; Start 01/28/19 at 21:00 Morphine Sulfate (morphine) 2 mg Q2H PRN IV PAIN LEVEL 7-10 Last administered on 01/29/19at 20:58; Admin Dose 2 MG; Start 01/28/19 at 10:30 Diagnostic Test (Pha) (Accu-Chek) 1 ea 02 XX ; Start 01/29/19 at 02:00 Insulin Glargine (Lantus) 14 units DAILY@2000 SC Last administered on 01/29/19at 20:20; Admin Dose 14 UNITS; Start 01/28/19 at 20:00 Insulin Aspart (Novolog Insulin Pen) 5 unit WITH MEALS SC Last administered on 01/29/19at 17:42; Admin Dose 5 UNIT; Start 01/28/19 at 11:30 Insulin Aspart (Novolog Insulin Pen) NOVOLOG *MILD* ALGORITHM WITH MEALS BEDTIME SC Last administered on 01/29/19at 11:57; Admin Dose 1 UNIT; Start 01/28/19 at 11:30 Lorazepam (Ativan) 0.5 mg Q6H PRN IV ANXIETY; Start 01/28/19 at 11:30 Miscellaneous Information 1 ea NOTE XX ; Start 01/28/19 at 12:00 Glucose (Glutose) 15 gm Q15M PRN PO DECREASED GLUCOSE; Start 01/28/19 at 12:00 Glucose (Glutose) 22.5 gm Q15M PRN PO DECREASED GLUCOSE; Start 01/28/19 at 12:00 Dextrose (D50w Syringe) 25 ml Q15M PRN IV DECREASED GLUCOSE; Start 01/28/19 at 12:00 Dextrose (D50w Syringe) 50 ml Q15M PRN IV DECREASED GLUCOSE; Start 01/28/19 at 12:00 Glucagon (Glucagen) 1 mg Q15M PRN IM DECREASED GLUCOSE; Start 01/28/19 at 12:00 Glucose (Glutose) 15 gm Q15M PRN BUCCAL DECREASED GLUCOSE; Start 01/28/19 at 12:00 SALEEM SNEED MD Jan 30, 2019 09:42
--- NOTE | 2019-01-30 11:20 | CONS ---
Consult Date/Type/Reason Admit Date/Time January 28, 2019 at 03:52 Initial Consult Date Requesting Provider: CECILLE RICHARD Date/Time of Note DATE: 01/30/19 TIME: 11:18 Subjective NO acute events - pt better now - con't med rx. ROS: No fever, no chills, no nausea, no vomiting, no diarrhea/constipation - mild SOB No dizziness, blurred vision No thirst, no heat or cold intolerance Objective Vitals Vital Signs Date Temp Pulse Resp B/P (MAP) Pulse Ox O2 O2 Flow FiO2 Time Delivery Rate 01/30/19 97 08:02 01/30/19 Nasal 2.0 08:00 Cannula 01/30/19 98.9 18 100/62 96 07:14 (75) 01/30/19 27 01:51 Intake and Output 01/29/19 01/29/19 01/30/19 1515:00 23:00 07:00 IntakeIntake Total 365.375 ml 350 ml 100 ml OutputOutput Total 1600 ml 0 ml 700 ml BalanceBalance -1234.625 ml 350 ml -600 ml Exam General: WN/WD/NAD, AOx3 HEENT: Unicetric/atraumatic/EOMI (follows commands) NECK: JVD elevated, no thyromegaly Lymph: no lymphadenopathy HEART: regular with no S3, II/ systolic murmur at apex LUNGS: Coarse sounds ABD: soft, NT, ND, +BS : Intact Neuro: non focal SKIN: chronic changes EXT: trace edema Results/Medications Result Diagram: 01/30/19 0417 01/30/19416 Results 24 hrs Laboratory Tests Test 01/29/19 11:55 01/29/19 17:39 01/29/19 17:40 01/29/19 20:18 Bedside Glucose 173 106 104 159 Test 01/30/19 04:17 01/30/19 07:42 White Blood Count 8.1 Red Blood Count 3.98 L Hemoglobin 12.1 L Hematocrit 34.8 L Mean Corpuscular 87.4 Volume Mean Corpuscular 30.4 Hemoglobin Mean Corpuscular 34.8 Hemoglobin Concent Red Cell 11.9 Distribution Width Platelet Count 202 # Mean Platelet Volume 9.2 Immature 0.400 Granulocytes % Neutrophils % 73.6 Lymphocytes % 17.3 Monocytes % 8.0 Eosinophils % 0.6 Basophils % 0.1 Nucleated Red Blood 0.0 Cells % Immature 0.030 Granulocytes # Neutrophils # 6.0 Lymphocytes # 1.4 Monocytes # 0.7 Eosinophils # 0.1 Basophils # 0.0 Nucleated Red Blood 0.0 Cells # Sodium Level 138 Potassium Level 3.6 Chloride Level 105 Carbon Dioxide Level 27 Anion Gap 6 Blood Urea Nitrogen 15 Creatinine 0.78 Est Glomerular > 60 Filtrat Rate mL/min Glucose Level 104 Calcium Level 8.5 Phosphorus Level 3.0 Magnesium Level 2.2 Bedside Glucose 88 Home Meds Active Scripts Metformin* (Glucophage*) 1,000 Mg Tablet, 1000 MG PO BID for 30 Days, TAB Prov:EUNICE SORENSEN MD 10/02/18 Famotidine* (Pepcid*) 20 Mg Tablet, 20 MG PO BID for 30 Days, TAB Prov:EUNICE SORENSEN MD 10/02/18 Benazepril Hcl* (Benazepril Hcl*) 20 Mg Tablet, 20 MG PO DAILY, #30 TAB Prov:EUNICE SORENSEN MD 10/02/18 Fenofibrate Nanocrystallized* (Fenofibrate*) 48 Mg Tablet, 67 MG PO DAILY for 30 Days, TAB Prov:EUNICE SORENSEN MD 10/02/18 Insulin Regular, Human (Humulin R) 100 Unit/1 Ml Vial, 20 UNIT IJ TIDM A for 30 Days, VIAL Prov:EUNICE SORENSEN MD 10/02/18 Medications Current Medications Aspirin (Halfprin) 81 mg DAILY PO Last administered on 01/30/19at 08:16; Admin Dose 81 MG; Start 01/28/19 at 09:00 Ticagrelor (Brilinta) 90 mg BID PO Last administered on 01/30/19at 08:21; Admin Dose 90 MG; Start 01/28/19 at 09:00 Acetaminophen (Tylenol Tab) 650 mg Q4H PRN PO PAIN Last administered on 01/29/19at 04:08; Admin Dose 650 MG; Start 01/28/19 at 05:30 Oxycodone/ Acetaminophen (Percocet (5/ 325)) 2 tab Q4H PRN PO PAIN; Start 01/28/19 at 05:30 Al Hydrox/Mg Hydrox/Simethicone (Mag-Al Plus) 30 ml Q4H PRN PO GASTROINTESTINAL UPSET; Start 01/28/19 at 05:30 Ondansetron HCl (Zofran Inj) 4 mg Q6H PRN IV NAUSEA AND/OR VOMITING Last administered on 01/28/19 18:05; Admin Dose 4 MG; Start 01/28/19 at 06:00 Acetaminophen (Tylenol Liquid) 650 mg Q6H PRN PO PAIN LEVEL 1-3 OR FEVER; Start 01/28/19 at 06:00 Pantoprazole (Protonix Tab) 40 mg DAILY@06 PO Last administered on 01/30/19 05:05; Admin Dose 40 MG; Start 01/28/19 at 06:00 Nitroglycerin (Nitroglycerin (Sl Tab) 0.4 Mg) 1 tab Q5M PRN SL ANGINA Last administered on 01/29/19 20:58; Admin Dose 1 TAB; Start 01/28/19 at 07:30 Benazepril HCl (Lotensin) 20 mg DAILY PO Last administered on 01/30/19 08:17; Admin Dose 20 MG; Start 01/28/19 at 10:30 Atorvastatin Calcium (Lipitor) 80 mg HS PO Last administered on 01/29/19 20:19; Admin Dose 80 MG; Start 01/28/19 at 21:00 Morphine Sulfate (morphine) 2 mg Q2H PRN IV PAIN LEVEL 7-10 Last administered on 01/29/19 20:58; Admin Dose 2 MG; Start 01/28/19 at 10:30 Diagnostic Test (Pha) (Accu-Chek) 1 ea 02 XX ; Start 01/29/19 at 02:00 Insulin Glargine (Lantus) 14 units DAILY@1999 SC Last administered on 01/29/19 20:20; Admin Dose 14 UNITS; Start 01/28/19 at 20:00 Insulin Aspart (Novolog Insulin Pen) 5 unit WITH MEALS SC Last administered on 01/29/19 17:42; Admin Dose 5 UNIT; Start 01/28/19 at 11:30 Insulin Aspart (Novolog Insulin Pen) NOVOLOG *MILD* ALGORITHM WITH MEALS BEDTIME SC Last administered on 01/29/19 11:57; Admin Dose 1 UNIT; Start 01/28/19 at 11:30 Lorazepam (Ativan) 0.5 mg Q6H PRN IV ANXIETY; Start 01/28/19 at 11:30 Miscellaneous Information 1 ea NOTE XX ; Start 01/28/19 at 12:00 Glucose (Glutose) 15 gm Q15M PRN PO DECREASED GLUCOSE; Start 01/28/19 at 12:00 Glucose (Glutose) 22.5 gm Q15M PRN PO DECREASED GLUCOSE; Start 01/28/19 at 12:00 Dextrose (D50w Syringe) 25 ml Q15M PRN IV DECREASED GLUCOSE; Start 01/28/19 at 12:00 Dextrose (D50w Syringe) 50 ml Q15M PRN IV DECREASED GLUCOSE; Start 01/28/19 at 12:00 Glucagon (Glucagen) 1 mg Q15M PRN IM DECREASED GLUCOSE; Start 01/28/19 at 12:00 Glucose (Glutose) 15 gm Q15M PRN BUCCAL DECREASED GLUCOSE; Start 01/28/19 at 12:00 Assessment/Plan Hospital Course (Demo Recall) 1. ST elevation [place], anterior-improved chest pain and sig downtrending of cardiac enzymes. EF 35-40% immediately post stenting - better now 2. Chest pain secondary to ST elevation DE. Con't to follow 3. Abnormal echocardiogram secondary to ST elevation DE.- persistent anterior ST elevations of ECG ? localized pericarditis. Enzymes downtrended and chest pain improved - no intervention neded now. 4. Hypertension- wel maintained. 5. Dyslipidemia. 6. Diabetes mellitus - on meds, con't to follow. AUSTIN COWART MD Jan 30, 2019 11:20
[2019-01-30] MEDS: ATORVASTATIN 80 MG TAB PO SCH (20:29)
[2019-01-30] MEDS: INSULIN GLARGINE [LANTus] (100 UNITS/ML) SYG SC SCH (20:29)
[2019-01-30] MEDS: morphine 2 MG INJ IV PRN (23:11)
[2019-01-31] VITALS: BP 127/74; PULSE 79; PULSE 83; RESP 18
[2019-01-31] MEDS: ACCU-CHEK XX SCH (02:00)
[2019-01-31 04:00] VITALS: BP 101/63; PULSE 80; PULSE 83; RESP 18
[2019-01-31] MEDS: PANTOPRAZOLE (EC) 40 MG TAB PO SCH (05:55)
[2019-01-31 07:13] VITALS: BP 113/66; PULSE 88; RESP 18
[2019-01-31] MEDS: INSULIN ASPART [NOVOLOG] 3 ML PEN SC SCH ×2 (07:32→08:05)
[2019-01-31 08:06] VITALS: PULSE 86
[2019-01-31] MEDS: ASPIRIN (EC) 81 MG TAB PO SCH (08:06)
[2019-01-31] MEDS: BENAZEPRIL 20 MG TAB PO SCH (08:07)
[2019-01-31] MEDS: TICAGRELOR 90 MG TABLET PO SCH (08:10)
--- NOTE | 2019-01-31 10:33 | PDOCDIS ---
Discharge Instructions DIAGNOSIS Discharge Diagnosis ST elevation myocardial infarction: Status post coronary angiography with PCI and drug-eluting stent placement x2 into the left anterior descending artery [place]: Essential hypertension; diabetes mellitus type 2; diastolic dysfunction grade 1; left ventricular hypertrophy CONDITION [id number] Patient Condition: [id number] Fair HOME CARE INSTRUCTIONS: [id number] Special Diet: [id number] Diabetic diet ACTIVITY: [id number] Activity Restrictions: [id number] Slowly Increase Activity Avoid Heavy Housework FOLLOW UP/APPOINTMENTS Follow-up Plan Cardiology in 1 week; primary care physician in 2 weeks SALEEM SNEED MD Jan 31, 2019 10:33
--- NOTE | 2019-01-31 10:33 | DS ---
Date/Time of Note Date/Time of Note DATE: 01/31/19 TIME: 10:27 Discharge Summary Admission/Discharge Info Admit Date/Time January 28, 2019 at 03:52 Discharge Date/Time January 31, [address] elevation myocardial infarction: Status post coronary angiography with PCI and drug-eluting stent placement x2 into the left anterior descending artery [place]: Essential hypertension; diabetes mellitus type 2; diastolic dysfunction grade 1; left ventricular hypertrophy Patient Condition: Fair Consults Cardiology-Dr. Carreno Procedures Left heart catheterization with angioplasty and placement of drug-eluting stents DATE OF PROCEDURE: 01/28/2019 TYPE OF PROCEDURE: 1. Left heart catheterization. 2. Coronary angiography. 3. Percutaneous transluminal coronary angioplasty with placement of drug- eluting stents x2 to left anterior descending, a 3.0 x 28 mm to proximal and a 3.0 x 18 mm to left anterior descending. 4. Moderate conscious sedation. 5. Measure of left ventricular end- diastolic pressure. ATTENDING PHYSICIAN: Teri Carreno M.D. Echocardiogram Hx of Present Illness Hx of Present Illness Chief complaint: Chest pain x2 days This is a 58-year-old male with a past medical history of diabetes mellitus, hypertension, hyperlipidemia who presented to the emergency department with chest pain x2 days. Patient reports that his chest pain had been left-sided and radiating to the bilateral shoulders. His pain continued to get worse he came to the emergency department. Patient reports shortness of breath. But denies any nausea vomiting or diarrhea. In the emergency department patient was noted to be in acute distress. EKG did show normal sinus rhythm with ST elevations in leads V1, V2 and V3 worse with reciprocal changes consistent with STEMI. Code STEMI was called. Dr. Carreno has been notified by the emergency department and he is on his way to see the patient. He has received aspirin 325 mg, heparin bolus, in the emergency department. Currently awaiting troponin results. HISTORY OF PRESENT ILLNESS: Mr. Sanchez is a 58-year-old male with a history of hypertension, dyslipidemia, diabetes mellitus who presented with 2 days of substernal chest pain. Upon arrival in the emergency department, temperature was 97.8, blood pressure 119/87, pulse 80, respiratory rate 18, satting 98%. The patient's labs revealed a sodium 140, potassium 4.0, creatinine 0.7, BUN 12. White blood cell count 9.2, hemoglobin 13.8, platelet count of 204. The patient subsequently underwent a 12-lead EKG revealing sinus rhythm, rate 86, normal axis, normal intervals, with anteroseptal borderline Q's anterior, anteroseptal ST elevation 1 to 2 mm. The patient in the emergency department was treated with aspirin 325 mg and heparin bolus. Started on nitro drip, was brought to the cardiac rn cardiac cath in order to undergo emergent cardiac catheterization. Hospital Course Sergio 58-year-old gentleman admitted with ST elevation myocardial infarction. He was taken emergently to the cardiac catheterization lab and had angioplasty and stenting of the LAD and 2 sequential locations. Postoperatively he has had a steady decline in his troponin has been been without symptoms. He has done well is now stable for discharge home. He will need to follow-up with cardiology in 1 week and with primary care physician 2 weeks Home Meds Active Scripts Metformin* (Glucophage*) 1,000 Mg Tablet, 1000 MG PO BID for 30 Days, TAB Prov:EUNICE SORENSEN MD 10/02/18 Famotidine* (Pepcid*) 20 Mg Tablet, 20 MG PO BID for 30 Days, TAB Prov:EUNICE SORENSEN MD 10/02/18 Benazepril Hcl* (Benazepril Hcl*) 20 Mg Tablet, 20 MG PO DAILY, #30 TAB Prov:EUNICE SORENSEN MD 10/02/18 Fenofibrate Nanocrystallized* (Fenofibrate*) 48 Mg Tablet, 67 MG PO DAILY for 30 Days, TAB Prov:EUNICE SORENSEN MD 10/02/18 Insulin Regular, Human (Humulin R) 100 Unit/1 Ml Vial, 20 UNIT IJ TIDM A for 30 Days, VIAL Prov:EUNICE SORENSEN MD 10/02/18 Follow-up Plan Cardiology in 1 week; primary care physician in 2 weeks Primary Care Provider Mando Pelayo MD Time spent on discharge: > 30 minutes Pending Labs Laboratory Tests Test 01/30/19 11:33 01/30/19 16:58 01/30/19 20:26 01/31/19 01:27 Bedside 335 133 207 110 Glucose mg/dL (70-220) mg/dL (70-220) mg/dL (70-220) mg/dL (70-220) Test 01/31/19 05:13 01/31/19 07:17 White Blood 5.2 Count 10^3/ul (4.8-10 .8) Red Blood 3.98 Count 10^6/ul (4.70-6 .10) Hemoglobin 12.2 g/dl (14.0-18.0 ) Hematocrit 34.8 % (42.0-52.0) Mean 87.4 Corpuscular fl (82.0-101.0) Volume Mean 30.7 Corpuscular pg (29.0-33.0) Hemoglobin Mean 35.1 Corpuscular g/dl (32.0-37.0 Hemoglobin Conc ) ent Red Cell 11.8 Distribution % (11.5-14.5) Width Platelet Count 238 10^3/UL (140-41 5) Mean Platelet 9.2 Volume fl (7.4-10.4) Immature 0.200 Granulocytes % % (0.001-0.429) Neutrophils % 68.3 % (39.0-77.0) Lymphocytes % 21.3 % (15.0-51.0) Monocytes % 8.5 % (0.0-11.0) Eosinophils % 1.5 % (0.0-7.0) Basophils % 0.2 % (0.0-2.0) Nucleated Red 0.0 Blood Cells % /100WBC (0.0-0. 0) Immature 0.010 Granulocytes # 10^3/ul (0.0-0. 031) Neutrophils # 3.6 10^3/ul (1.6-7. 5) Lymphocytes # 1.1 10^3/ul (0.8-2. 9) Monocytes # 0.4 10^3/ul (0.3-0. 9) Eosinophils # 0.1 10^3/ul (0.0-0. 5) Basophils # 0.0 10^3/ul (0.0-0. 1) Nucleated Red 0.0 Blood Cells # 10^3/ul (0.0-0. 0) Sodium Level 141 mmol/L (135-144 ) Potassium 4.1 Level mmol/L (3.5-5.1 ) Chloride Level 106 mmol/L (97-110) Carbon Dioxide 27 Level mmol/L (21-31) Anion Gap 8 (5-13) Blood Urea 14 mg/dl (7-20) Nitrogen Creatinine 0.69 mg/dl (0.61-1.2 4) Est Glomerular > 60 Filtrat mL/min (>60) Rate mL/min Glucose Level 95 mg/dl (70-220) Calcium Level 8.8 mg/dl (8.4-10.2 ) Troponin I 8.370 ng/ml (0.000-0. 120) Bedside 104 Glucose mg/dL (70-220) Copies To: CC: TERI CARRENO ; SALEEM SNEED MD Jan 31, 2019 10:33
[2019-01-31] MEDS ORDERED: TICA90TA PO (10:37)
[2019-01-31] MEDS ORDERED: ATOR-2 PO (10:37)
[2019-01-31] MEDS ORDERED: ASPI-1044 PO (10:37)
[2019-01-31] MEDS ORDERED: Insulin Glargine SC (10:37)
== END 2019-01-31 11:50 | disposition home or self-care (01) | DRG 247 ==
LOC: E/R 02:08 → CCL 03:51 → SDS 03:51 → ICU 03:52 → 6WM 01-30 04:24
PROVIDERS: ADMIT Family Medicine; ATTEND Family Medicine
PROC: B211YZZ Fluoroscopy of Multiple Coronary Arteries using Other Contrast (ICD-10-PCS; 2019-01-28)
PROC: 027035Z Dilation of Coronary Artery, One Artery with Two Drug-eluting Intraluminal Devices, Percutaneous Approach (ICD-10-PCS; principal; 2019-01-28 03:30)
PROC: 4A023N7 Measurement of Cardiac Sampling and Pressure, Left Heart, Percutaneous Approach (ICD-10-PCS; 2019-01-28 03:30)
DX: I21.02 ST elevation (STEMI) myocardial infarction involving left anterior descending coronary artery (principal); E78.5 Hyperlipidemia, unspecified; I10 Essential (primary) hypertension; I25.10 Atherosclerotic heart disease of native coronary artery without angina pectoris; E11.9 Type 2 diabetes mellitus without complications; F41.9 Anxiety disorder, unspecified; I51.89 Other ill-defined heart diseases; I51.7 Cardiomegaly; Z79.4 Long term (current) use of insulin
CPT/HCPCS: 36415; 71045; 80048; 80061; 80076; 82550; 82553; 82962; 83036; 83735; 84100; 84484; 85025; 87081; 93005; 93306; 93458; 96365; 96375; C1725; C1874; C1887; C9606; J0583; J1644; J1815; J2250; J2270; J2405; J3010; J7030; Q9967